=== PATIENT | male | born 1965 | race Caucasian/White ===

== ENCOUNTER → 2018-07-10 | Outpatient (CLI) | payer BC ==
[~2018-07-10] MED LIST: Augmentin 875-1 EACH PO; Bisac-Evac10 MG PR; Colace100 MG PO; GABA300 PO; HYDACE5 PO; HYDR1TAB94 PO; IBUP800 PO; INSULANPEN SC; LISI5 PO; METF500 PO; METF500C PO; PRAV20 PO; SACC250C PO; TRAM50 PO; TYLENOL325 MG PO; Zofran Odt4 MG PO
[2018-07-10 17:50] LABS: BASOPHILS ABSOLUTE AUTO 0.04 K/mm3 (0.00-0.23); BASOPHILS PERCENT AUTO 0 % (0-2); EOSINOPHILS ABSOLUTE AUTO 0.05 K/mm3 (0.00-0.68); EOSINOPHILS PERCENT AUTO 1 % (0-6); Hematocrit 44.2 % (37.0-53.0); Hemoglobin 15.3 g/dL (13.5-17.5); IMMATURE GRAN ABSOLUTE AUTO 0.03 K/mm3 (0.00-0.10); IMMATURE GRAN PERCENT AUTO 0 % (0-1); LYMPHOCYTES ABSOLUTE AUTO 1.08 K/mm3 (0.84-5.20); LYMPHOCYTES PERCENT AUTO 12 % (21-46); MONOCYTES ABSOLUTE AUTO 0.83 K/mm3 (0.16-1.47); MONOCYTES PERCENT AUTO 9 % (4-13); Mean Corpuscular HGB 29.1 pg (26.0-34.0); Mean Corpuscular HGB Conc 34.6 g/dL (31.5-36.5); Mean Corpuscular Volume 84 fL (80-100); Mean Platelet Volume 10.5 fL (9.1-12.4); NEUTROPHILS ABSOLUTE AUTO 7.31 K/mm3 (1.96-9.15); NEUTROPHILS PERCENT AUTO 78 % (41-73); Platelet Count 197 K/mm3 (150-400); RDW Coefficient Variation 11.7 % (11.7-14.2); RDW Standard Deviation 35.3 fL (35.1-46.3); Red Blood Cell Count 5.25 M/mm3 (4.30-5.90); White Blood Cell Count 9.34 K/mm3 (4.00-11.30)
[2018-07-10 17:57] LABS: Bun/Creatinine Ratio 14.4 (12.0-20.0); Calcium, Blood 9.7 mg/dL (8.5-10.1); Creatinine, Blood 1.39 mg/dL (0.60-1.20); Potassium, Blood 4.4 mmol/L (3.5-5.5)
== END ==
LOC: LAB SHORT 17:47 → LAB EV 17:47
PROVIDERS: Emergency Medicine
DX: L05.01 Pilonidal cyst with abscess (principal)
CPT/HCPCS: 80048; 85025

== ENCOUNTER 2018-11-12 10:46 | Day surgery (SDC) | payer BC ==
[~2018-11-12] VITALS: Ht 185.4 cm; Wt 100.2 kg
[~2018-11-12 10:46] MED LIST changes: +Prinivil10 MG PO; +SILD50TA PO
== END 2018-11-12 14:15 | disposition home or self-care (01) ==
LOC: ORSCSDS 10:46
PROVIDERS: Internal Medicine Gastroenterology
PROC: 0DBL8ZX Excision of Transverse Colon, Via Natural or Artificial Opening Endoscopic, Diagnostic (ICD-10-PCS; principal; 2018-11-12 12:15)
DX: Z12.11 Encounter for screening for malignant neoplasm of colon (principal); D12.3 Benign neoplasm of transverse colon; K57.30 Diverticulosis of large intestine without perforation or abscess without bleeding; K64.8 Other hemorrhoids; I10 Essential (primary) hypertension; E11.9 Type 2 diabetes mellitus without complications; E78.5 Hyperlipidemia, unspecified; Z79.4 Long term (current) use of insulin; Z79.899 Other long term (current) drug therapy
CPT/HCPCS: 82947; 88305; J2704; J7120

== ENCOUNTER → 2018-12-29 | Outpatient (CLI) | payer BC ==
[2018-12-29 17:00] LABS: BASOPHILS ABSOLUTE AUTO 0.04 K/mm3 (0.00-0.23); BASOPHILS PERCENT AUTO 0 % (0-2); EOSINOPHILS PERCENT AUTO 1 % (0-6); Hematocrit 38.9 % (37.0-53.0); Hemoglobin 13.8 g/dL (13.5-17.5); IMMATURE GRAN ABSOLUTE AUTO 0.03 K/mm3 (0.00-0.10); IMMATURE GRAN PERCENT AUTO 0 % (0-1); LYMPHOCYTES ABSOLUTE AUTO 1.65 K/mm3 (0.84-5.20); LYMPHOCYTES PERCENT AUTO 16 % (21-46); MONOCYTES ABSOLUTE AUTO 0.94 K/mm3 (0.16-1.47); MONOCYTES PERCENT AUTO 9 % (4-13); Mean Corpuscular HGB 29.6 pg (26.0-34.0); Mean Corpuscular HGB Conc 35.5 g/dL (31.5-36.5); Mean Corpuscular Volume 83 fL (80-100); Mean Platelet Volume 10.1 fL (9.1-12.4); NEUTROPHILS ABSOLUTE AUTO 7.35 K/mm3 (1.96-9.15); NEUTROPHILS PERCENT AUTO 73 % (41-73); Platelet Count 239 K/mm3 (150-400); RDW Coefficient Variation 12.3 % (11.7-14.2); RDW Standard Deviation 37.2 fL (35.1-46.3); Red Blood Cell Count 4.67 M/mm3 (4.30-5.90); White Blood Cell Count 10.11 K/mm3 (4.00-11.30)
[2018-12-29 17:12] LABS: Bilirubin, Total 0.7 mg/dL (0.1-1.0); Bun/Creatinine Ratio 19.3 (12.0-20.0); Calcium, Blood 9.8 mg/dL (8.5-10.1); Creatinine, Blood 1.5 mg/dL (0.60-1.20); Globulin, Blood 3.9 g/dL (2.2-4.0); Potassium, Blood 4.1 mmol/L (3.5-5.5); Total Protein, Blood 7.9 g/dL (6.4-8.2)
== END | disposition home or self-care (01) ==
LOC: LAB SHORT 16:45 → LAB EV 16:45
PROVIDERS: General Practice
DX: E13.621 Other specified diabetes mellitus with foot ulcer (principal)
CPT/HCPCS: 80053; 85025; 87070; 87075; 87077; 87147; 87186; 87205

== ENCOUNTER → 2020-08-29 | Outpatient (CLI) | payer BC ==
[~2020-08-29] MED LIST changes: +AMOCLA875 PO; +DOXY100 PO; +OXYC5 PO; +VISBIOME 112.51 EACH PO
== END ==
LOC: LAB 15:23 → LAB SHORT 15:23
DX: E13.621 Other specified diabetes mellitus with foot ulcer (principal); L97.509 Non-pressure chronic ulcer of other part of unspecified foot with unspecified severity
CPT/HCPCS: 87070; 87075; 87147; 87205

== ENCOUNTER → 2020-08-30 | Outpatient (CLI) | payer BC ==
[2020-08-30 09:56] LABS: BASOPHILS ABSOLUTE AUTO 0.04 K/mm3 (0.00-0.23); BASOPHILS PERCENT AUTO 0 % (0-2); EOSINOPHILS ABSOLUTE AUTO 0.01 K/mm3 (0.00-0.68); EOSINOPHILS PERCENT AUTO 0 % (0-6); Hematocrit 36.7 % (37.0-53.0); Hemoglobin 12.3 g/dL (13.5-17.5); IMMATURE GRAN ABSOLUTE AUTO 0.09 K/mm3 (0.00-0.10); IMMATURE GRAN PERCENT AUTO 1 % (0-1); LYMPHOCYTES ABSOLUTE AUTO 0.86 K/mm3 (0.84-5.20); LYMPHOCYTES PERCENT AUTO 7 % (21-46); MONOCYTES ABSOLUTE AUTO 1.13 K/mm3 (0.16-1.47); MONOCYTES PERCENT AUTO 9 % (4-13); Mean Corpuscular HGB 28.1 pg (26.0-34.0); Mean Corpuscular HGB Conc 33.5 g/dL (31.5-36.5); Mean Corpuscular Volume 84 fL (80-100); Mean Platelet Volume 10.5 fL (9.1-12.4); NEUTROPHILS ABSOLUTE AUTO 10.76 K/mm3 (1.96-9.15); NEUTROPHILS PERCENT AUTO 83 % (41-73); Platelet Count 194 K/mm3 (150-400); RDW Coefficient Variation 12.3 % (11.7-14.2); RDW Standard Deviation 37.4 fL (35.1-46.3); Red Blood Cell Count 4.38 M/mm3 (4.30-5.90); White Blood Cell Count 12.89 K/mm3 (4.00-11.30)
== END | disposition home or self-care (01) ==
LOC: LAB SHORT 08:45 → LAB 08:45
PROVIDERS: Physician Assistant Medical
DX: E13.621 Other specified diabetes mellitus with foot ulcer (principal); L97.509 Non-pressure chronic ulcer of other part of unspecified foot with unspecified severity
CPT/HCPCS: 85025; 85651; 86140

== ENCOUNTER 2020-08-31 16:26 | Inpatient (IN) | payer BC ==
[~2020-08-31] VITALS: Ht 185.4 cm; Wt 115.0 kg
[~2020-08-31 16:26] MED LIST changes: -AMOCLA875 PO; -DOXY100 PO; -OXYC5 PO; -VISBIOME 112.51 EACH PO
[2020-08-31] MEDS ORDERED: DOXY100 PO (17:03)
--- NOTE | 2020-08-31 17:27 | NUR ---
CALLED [facility] FOR NEW ADMIT ORDERS, STATES KARINA IS GOING TO PLACE ORDERS.
--- NOTE | 2020-09-01 04:47 | NUR ---
CYTOGENETICS LABORATORY MANAGER SUMMARY PT A&OX4, ABLE TO MAKE NEEDS KNOWN. PLEASANT AND COOPERATIVE TO CARE. PT MEDICATED FOR R FOOT PAIN X1 PER EMAR. NO C/O CP, SOB OR N&V. PT CONT ON IV ABX, NO ASE NOTED. PT SBA TO BATHROOM. DENIES DYSURIA OR GI ISSUES THIS SHIFT. WOUND DRESSING TO R FOOT C/D/I. PT CALM AND RESTED IN BED T/O SHIFT. BED AT LOWEST POSITION. CALL LIGHT WITHIN REACH.
[2020-09-01 05:08] LABS: BASOPHILS ABSOLUTE AUTO 0.05 K/mm3 (0.00-0.23); BASOPHILS PERCENT AUTO 0 % (0-2); EOSINOPHILS ABSOLUTE AUTO 0.02 K/mm3 (0.00-0.68); EOSINOPHILS PERCENT AUTO 0 % (0-6); Hematocrit 33.4 % (37.0-53.0); Hemoglobin 10.6 g/dL (13.5-17.5); IMMATURE GRAN ABSOLUTE AUTO 0.05 K/mm3 (0.00-0.10); IMMATURE GRAN PERCENT AUTO 0 % (0-1); LYMPHOCYTES ABSOLUTE AUTO 0.99 K/mm3 (0.84-5.20); LYMPHOCYTES PERCENT AUTO 8 % (21-46); MONOCYTES ABSOLUTE AUTO 1.18 K/mm3 (0.16-1.47); MONOCYTES PERCENT AUTO 9 % (4-13); Mean Corpuscular HGB 26.9 pg (26.0-34.0); Mean Corpuscular HGB Conc 31.7 g/dL (31.5-36.5); Mean Corpuscular Volume 85 fL (80-100); Mean Platelet Volume 11.2 fL (9.1-12.4); NEUTROPHILS ABSOLUTE AUTO 10.34 K/mm3 (1.96-9.15); NEUTROPHILS PERCENT AUTO 82 % (41-73); Platelet Count 231 K/mm3 (150-400); RDW Coefficient Variation 12.4 % (11.7-14.2); RDW Standard Deviation 38.5 fL (35.1-46.3); Red Blood Cell Count 3.94 M/mm3 (4.30-5.90); White Blood Cell Count 12.63 K/mm3 (4.00-11.30)
[2020-09-01 05:44] LABS: Alanine Aminotransfer (ALT/SGP 79 U/L (12-78); Albumin, Blood 2.7 g/dL (3.4-5.0); Albumin/Globulin Ratio 0.6 (0.8-1.8); Alk Phos 121 U/L (50-136); Anion Gap 9 mmol/L (6-16); Aspartate Aminotrans (AST/SGOT 75 U/L (12-37); Blood Urea Nitrogen 25 mg/dL (8-24); Bun/Creatinine Ratio 21.6 (12.0-20.0); CO2, Blood 24 mmol/L (21-32); Calcium, Blood 8.4 mg/dL (8.5-10.1); Chloride, Blood 97 mmol/L (98-108); Creatinine, Blood 1.16 mg/dL (0.60-1.20); Globulin, Blood 4.6 g/dL (2.2-4.0); Glomerular Filtration Rate >60 (60-); Glucose, Blood 238 mg/dL (70-99); Potassium, Blood 4.1 mmol/L (3.5-5.5); Sodium, Blood 130 mmol/L (136-145); Total Protein, Blood 7.3 g/dL (6.4-8.2)
--- NOTE | 2020-09-01 10:12 | NUR ---
Echocardiogram performed by Hamida Saez under my supervision.
[2020-09-01 15:23] LABS: Influenza A, PCR Negative (NEGATIVE); Influenza B, PCR Negative (NEGATIVE); Resp Syncytial Virus, PCR Negative (NEGATIVE); SARS-Cov-2 (COVID-19) PCR, MMC Negative (NEGATIVE)
--- NOTE | 2020-09-01 16:33 | NUR ---
PT TRANSFERED TO [facility] FROM FLOOR VIA GURNY. History, Chart, Medications and Allergies reviewed before start of procedure. Lungs clear T/O to Auscultation. Patient confirms NPO status and agrees with scheduled surgery.
--- NOTE | 2020-09-01 16:52 | NUR ---
ADMIT: 08/31/20 DISCHARGE: DX: foot abcess, dm CC: cpeabody [place] CALL: RESIDENCE: home with Kimberley CAREGIVER: self Kelly- Kimberley [phone] DX: dm 2, foot ulcers, htn, see list DME: no record CCM: no record HOME HEALTH: no record SUMMARY: Admit 08/31/20 09/01/20 Toe amputation scheduled for today. cp PROBLEMS: 1: Diabetic foot ulcer associated with type 2 diabetes mellitus, with fat layer exposed
--- NOTE | 2020-09-01 18:48 | NUR ---
SHIFT SUMMARY PT BACK FROM SURGERY WITH WOUND VAC IN PLACE. PT AWAKE, AND TALKING AND STARTING TO EAT DINNER. VITALS WNL. NO ACUTE DISTRESS AT THIS TIME. CALL LIGHT IN REACH. WILL CONTINUE TO MONITOR AND REPORT TO ONCOMING RN.
--- NOTE | 2020-09-02 04:21 | NUR ---
SHIFT SUMMARY ASSUMED CARE OF PT AT 1900. PT IS A/OX4. HEART SOUNDS REGULAR, LUNG SOUNDS CLEAR. PT USED URINAL T/O THE NIGHT. PT VITALS STABLE. WOUND WAC DRAINING SCANT RED FLUID. PT EDUCATED ABOUT WOUND VAC. PT CONCERNED ABOUT LEARNING TO WALK AGAIN. NO ACUTE EVENTS DURING THE NIGHT. PT SLEPT T/O THE NIGHT. CALL LIGHT IN REACH, BED IN LOWEST POSITION.
--- NOTE | 2020-09-02 09:09 | NUR ---
09/02/20 0909 Josette Toro VERIFICATIONS: EDIT CHART.
--- NOTE | 2020-09-02 19:00 | NUR ---
09/02/20 NO ETA for discharge at this time, additional surgery planned for Sunday. Will follow patient for discharge needs. cp
--- NOTE | 2020-09-02 19:26 | NUR ---
SHIFT SUMMARY MEDICATED FOR PAIN X1 THIS SHIFT. WOUND VAC IN PLACE WORKING W/O DIFFICULTY. PT HAS HAD NO FURTHER COMPLAINTS THIS SHIFT. PLANS FOR SURGERY TOMORROW WITH DR. SALGADO. REPORT GIVEN TO LIZBETH RN. CALL LIGHT IN REACH.
--- NOTE | 2020-09-03 04:25 | NUR ---
SHIFT SUMMARY ASSUMED CARE OF PT AT 1900. PT IS A/OX4. PT IS VERY ANXIOUS, PT STATES THAT HE CANNOT DESCRIBED THE FEELINGS THAT HE IS HAVING. PT WAS UNABLE TO SLEEP UNTIL AFTER MIDNIGHT, MEDICATED FOR ANXIETY PER EMAR. HEART SOUNDS REGULAR, LUNG SOUNDS CLEAR. PT USED URINAL AT BEDSIDE. WOUNDS VAC DRAINING SCANT RED FLUID. PT HAS BEEN NPO SINCE MIDNIGHT. CALL LIGHT IN REACH, BED IN LOWEST POSTION.
[2020-09-03 04:57] LABS: BASOPHILS ABSOLUTE AUTO 0.04 K/mm3 (0.00-0.23); BASOPHILS PERCENT AUTO 1 % (0-2); EOSINOPHILS ABSOLUTE AUTO 0.12 K/mm3 (0.00-0.68); EOSINOPHILS PERCENT AUTO 2 % (0-6); IMMATURE GRAN ABSOLUTE AUTO 0.14 K/mm3 (0.00-0.10); IMMATURE GRAN PERCENT AUTO 2 % (0-1); LYMPHOCYTES ABSOLUTE AUTO 1.28 K/mm3 (0.84-5.20); LYMPHOCYTES PERCENT AUTO 18 % (21-46); MONOCYTES PERCENT AUTO 10 % (4-13); Mean Corpuscular HGB 27.5 pg (26.0-34.0); Mean Corpuscular HGB Conc 32.3 g/dL (31.5-36.5); Mean Corpuscular Volume 85 fL (80-100); Mean Platelet Volume 10.6 fL (9.1-12.4); NEUTROPHILS ABSOLUTE AUTO 5.02 K/mm3 (1.96-9.15); NEUTROPHILS PERCENT AUTO 69 % (41-73); Platelet Count 264 K/mm3 (150-400); RDW Coefficient Variation 12.8 % (11.7-14.2); RDW Standard Deviation 39.8 fL (35.1-46.3); Red Blood Cell Count 3.63 M/mm3 (4.30-5.90)
[2020-09-03 05:20] LABS: Albumin, Blood 2.1 g/dL (3.4-5.0); Albumin/Globulin Ratio 0.5 (0.8-1.8); Bilirubin, Total 0.6 mg/dL (0.1-1.0); Bun/Creatinine Ratio 32.4 (12.0-20.0); Calcium, Blood 8.2 mg/dL (8.5-10.1); Creatinine, Blood 1.36 mg/dL (0.60-1.20); Globulin, Blood 4.4 g/dL (2.2-4.0); Potassium, Blood 4.6 mmol/L (3.5-5.5); Total Protein, Blood 6.5 g/dL (6.4-8.2)
--- NOTE | 2020-09-03 13:02 | NUR ---
PATIENT WAS BROUGHT TO D/S FOR HIS PROCEDURE. THE PATIENT'S B/G WAS 275 AND HE RECIEVED 4 UNITS OF INSULIN, PER DR. BAKER.Noelle Paws warming gown applied. History, Chart, Medications and Allergies reviewed before start of procedure.Lungs clear T/O to Auscultation. Patient confirms NPO status and agrees with scheduled surgery. Pre-Op teaching done. Pt verbalizes understanding.
--- NOTE | 2020-09-03 15:37 | NUR ---
TRANSFER TO 216. PT STILL IN DAY SURGERY BUT TO BE TRANSFERED TO ROOM 216. REPORT GIVEN TO LETI DUNCAN RN. PT , FRANCISCA CALLED & NOTIFIED.
--- NOTE | 2020-09-03 17:04 | NUR ---
1545 TO ROOM 216 FROM PACU ACCOMPANIED BY . PT ALERT AND ORIENTED, DENIES ANY PAIN OR NAUSEA. RIGHT LOWER EXTREMITY ELEVATED ON 2 PILLOWS. DRESSING TO RIGHT FOOT CLEAN DRY AND INTACT,
--- NOTE | 2020-09-03 18:25 | NUR ---
SUMMARY PT DENIES ANY PAIN TO RIGHT FOOT. R FOOT ELEVATED ON PILLOWS, DRESSING DRY AND INTACT. BRUCE PO DIET WITHOUT NAUSEA
[2020-09-04 04:26] LABS: BASOPHILS ABSOLUTE AUTO 0.04 K/mm3 (0.00-0.23); BASOPHILS PERCENT AUTO 0 % (0-2); EOSINOPHILS ABSOLUTE AUTO 0.18 K/mm3 (0.00-0.68); EOSINOPHILS PERCENT AUTO 2 % (0-6); Hematocrit 30.2 % (37.0-53.0); Hemoglobin 9.7 g/dL (13.5-17.5); IMMATURE GRAN ABSOLUTE AUTO 0.17 K/mm3 (0.00-0.10); IMMATURE GRAN PERCENT AUTO 2 % (0-1); LYMPHOCYTES ABSOLUTE AUTO 1.69 K/mm3 (0.84-5.20); LYMPHOCYTES PERCENT AUTO 16 % (21-46); MONOCYTES ABSOLUTE AUTO 0.88 K/mm3 (0.16-1.47); MONOCYTES PERCENT AUTO 8 % (4-13); Mean Corpuscular HGB 27.8 pg (26.0-34.0); Mean Corpuscular HGB Conc 32.1 g/dL (31.5-36.5); Mean Corpuscular Volume 87 fL (80-100); Mean Platelet Volume 10.6 fL (9.1-12.4); NEUTROPHILS ABSOLUTE AUTO 7.81 K/mm3 (1.96-9.15); NEUTROPHILS PERCENT AUTO 72 % (41-73); Platelet Count 331 K/mm3 (150-400); RDW Standard Deviation 40.9 fL (35.1-46.3); Red Blood Cell Count 3.49 M/mm3 (4.30-5.90); White Blood Cell Count 10.77 K/mm3 (4.00-11.30)
[2020-09-04 04:47] LABS: Alanine Aminotransfer (ALT/SGP 513 U/L (12-78); Albumin, Blood 2.1 g/dL (3.4-5.0); Albumin/Globulin Ratio 0.5 (0.8-1.8); Alk Phos 242 U/L (50-136); Anion Gap 9 mmol/L (6-16); Aspartate Aminotrans (AST/SGOT 316 U/L (12-37); Bilirubin, Total 0.5 mg/dL (0.1-1.0); Blood Urea Nitrogen 32 mg/dL (8-24); Bun/Creatinine Ratio 28.3 (12.0-20.0); CO2, Blood 24 mmol/L (21-32); Calcium, Blood 8.2 mg/dL (8.5-10.1); Chloride, Blood 100 mmol/L (98-108); Cholesterol 109 mg/dL (50-200); Creatinine, Blood 1.13 mg/dL (0.60-1.20); Globulin, Blood 4.5 g/dL (2.2-4.0); Glomerular Filtration Rate >60 (60-); Glucose, Blood 200 mg/dL (70-99); HDL Cholesterol 22 mg/dL (>39); LDL/HDL RATIO 2.7; Low Density Lipoprotein Chol 60 mg/dL (0-110); Potassium, Blood 4.8 mmol/L (3.5-5.5); Sodium, Blood 133 mmol/L (136-145); Total Protein, Blood 6.6 g/dL (6.4-8.2); Triglycerides 133 mg/dL (30-160); Very Low Density Lipoprot Chol 26 mg/dL (6-32)
--- NOTE | 2020-09-04 06:07 | NUR ---
SHIFT SUMMARY POD1 TOE AMPUTATION R FOOT, A/O X4, VSS, TOLERATING PO, VOIDING WELL, PASSING FLATUS, PAIN WELL CONTROLLED PER EMAR. CALL LIGHT IN REACH, WILL CONTINUE TO MONITOR AND REPORT TO ONCOMING DAY RN.
[2020-09-04] MEDS ORDERED: AMOCLA875 PO (14:18)
[2020-09-04] MEDS ORDERED: VISBIOME 112.51 EACH PO (14:19)
[2020-09-04] MEDS ORDERED: OXYC5 PO (14:19)
--- NOTE | 2020-09-04 15:41 | NUR ---
DISCHARGE PT PROVIDED WITH WRITTEN AND VERBAL DISCHARGE INSTRUCTIONS, AND HE REPORTED UNDERSTANDING. SCRIPTS PROVIDED. PT HAD WALKER DELIVERED FROM [facility]. PT EDUCATED TO FOLLOW UP WITH DR. SALGADO AND PCP. PAIN MANAGED AT TIME OF DISCHARGE. PT ESCORTED OUT IN W/C BY KONG MARINA.
== END 2020-09-04 15:10 | disposition home or self-care (01) | DRG 239 ==
LOC: SURS 16:26 → MEDS 16:26 → SURS 09-03 15:38
PROVIDERS: Family Medicine; Podiatrist Foot & Ankle Surgery; ADMIT Hospitalist
PROC: 0Y6M0ZD Detachment at Right Foot, Partial 4th Ray, Open Approach (ICD-10-PCS; principal; 2020-09-01 15:50)
PROC: 0Y6M0ZF Detachment at Right Foot, Partial 5th Ray, Open Approach (ICD-10-PCS; 2020-09-01 15:50)
PROC: 0Y6M0Z9 Detachment at Right Foot, Partial 1st Ray, Open Approach (ICD-10-PCS; 2020-09-03)
PROC: 0Y6M0ZB Detachment at Right Foot, Partial 2nd Ray, Open Approach (ICD-10-PCS; 2020-09-03)
PROC: 0Y6M0ZC Detachment at Right Foot, Partial 3rd Ray, Open Approach (ICD-10-PCS; 2020-09-03)
PROC: 0Y6M0ZD Detachment at Right Foot, Partial 4th Ray, Open Approach (ICD-10-PCS; 2020-09-03)
PROC: 0Y6M0ZF Detachment at Right Foot, Partial 5th Ray, Open Approach (ICD-10-PCS; 2020-09-03)
DX: E11.52 Type 2 diabetes mellitus with diabetic peripheral angiopathy with gangrene (principal); A48.0 Gas gangrene; L02.611 Cutaneous abscess of right foot; L03.115 Cellulitis of right lower limb; E11.621 Type 2 diabetes mellitus with foot ulcer; E86.0 Dehydration; I10 Essential (primary) hypertension; E11.628 Type 2 diabetes mellitus with other skin complications; R01.1 Cardiac murmur, unspecified; E11.65 Type 2 diabetes mellitus with hyperglycemia; Z79.4 Long term (current) use of insulin; E88.09 Other disorders of plasma-protein metabolism, not elsewhere classified; D63.8 Anemia in other chronic diseases classified elsewhere; Z20.822 Contact with and (suspected) exposure to COVID-19; F41.9 Anxiety disorder, unspecified; M79.2 Neuralgia and neuritis, unspecified
CPT/HCPCS: 0241U; 36415; 73630; 73718; 80053; 80061; 82947; 83036; 85025; 85651; 86140; 87040; 87070; 87071; 87075; 87076; 87147; 87185; 87205; 88305; 88311; 93306; 93971; 97110; 97162; 97530; A9270; J0295; J1650; J1815; J2250; J2370; J2405; J2704; J2765; J3010; J7030; J7050; J7120

== ENCOUNTER 2020-09-10 19:18 | Emergency (ER) | payer BC ==
[~2020-09-10] VITALS: Ht 185.4 cm; Wt 111.1 kg
[~2020-09-10 19:18] MED LIST changes: +AMOCLA875 PO; +DOXY100 PO; +OXYC5 PO; +VISBIOME 112.51 EACH PO
== END 2020-09-10 22:21 | disposition home or self-care (01) ==
LOC: ER 19:18
DX: S98.311 Complete traumatic amputation of right midfoot (principal); I10 Essential (primary) hypertension; E11.9 Type 2 diabetes mellitus without complications; Z79.4 Long term (current) use of insulin; X58.XXXD Exposure to other specified factors, subsequent encounter
CPT/HCPCS: 99282-25

== ENCOUNTER 2022-12-09 12:59 | Inpatient (IN) | payer BC ==
[~2022-12-09] VITALS: Ht 185.4 cm; Wt 116.3 kg
[2022-12-09] VITALS (12 sets, daily range): BP systolic 100–138; BP diastolic 65–98
[~2022-12-09 12:59] MED LIST changes: -ARTHRICREAM RUB85 GM TP; -CEPH500 PO; -ELIQUIS5 M2 PO; -FURO40 PO; -METO25ER PO; -ROSUVASTATIN CA20 MG PO
[2022-12-09] MEDS ORDERED: ROSUVASTATIN CA20 MG PO (14:30)
[2022-12-10] VITALS (33 sets, daily range): BP systolic 70–144; BP diastolic 37–110
--- NOTE | 2022-12-10 05:57 | NUR ---
END OF SHIFT PT HR 140'S TO 150'S WAS TREATED WITH CARDIZEM GTT AT 20MG/HR AND LOPRESSOR 25 MG PO WAS ADDED WELL, B/P DROPPED OVERNIGHT AND NS BOLUS 500ML X'S 2 GIVEN, HR AFLUTTER IN 70'S-80'S, BP STILL SOFT BUT MAP 70-80, NAUSEA TREATED WITH ZOFRAN, SMALL AMOUNT OF EMESIS WITH DRY HEAVES X'S 1, PT AWAKE ALL NIGHT, A BIT ANXIOUS ABOUT CONDITION, VSS AT PRESENT, PT RESTING IN BED WITH CALL LIGHT IN REACH
--- NOTE | 2022-12-10 08:30 | NUR ---
METOPROLOL ADMINISTERED PT BP STABLE AND HR CONTINUES IN THE 130'S. DISCUSSED WITH CHEMICAL RECOVERY OPERATOR NICOLE AND DECISION MADE TO ADMINISTER 0600 DOSE OF METOPROLOL. APPEARS THAT HYPOTENSION OVERNIGHT WAS LIKELY RELATED TO COMBINATION OF DILTIZEM GTT OVERLAPPING WITH METOPROLOL DOSES AND THE CLOSE ADMINISTRAION OF METOPROLOL DOSES. WILL CONTINUE TO MONITOR PTS HR AND BP CLOSELY.
--- NOTE | 2022-12-10 10:30 | NUR ---
ASSESSMENT/PROVIDER VISIT FULL ASSESSMENT CHARTED. PT ALERT AND ORIENTED X 4. PT IRRITABLE DUE TO LACK OF SLEEP LAST NIGHT. THIS RN REASSURES PT AND PROVIDES INSTRUCTION ON PLAN AND GOALS OF TREATMENT. DR. ROMERO TO BEDSIDE, DISCUSSED HR, POSSIBLE R FOOT INFECTION, AND NPO STATUS. PLAN TO CONSULT WITH CARDIOLOGY FOR HR/RHYTHM. WILL GIVE 1200 DOSE OF METOPROLOL. PT TO CONTINUE WITH NPO STATUS UNTIL EVALUATED BY CARDIOLOGY. PROVIDER TO CONTINUE TO EVALUATE R FOOT.
[2022-12-10 11:59] LABS: BASOPHILS ABSOLUTE AUTO 0.02 K/mm3 (0.00-0.23); BASOPHILS PERCENT AUTO 0 % (0-2); EOSINOPHILS ABSOLUTE AUTO 0.02 K/mm3 (0.00-0.68); EOSINOPHILS PERCENT AUTO 0 % (0-6); Hematocrit 35.7 % (37.0-53.0); Hemoglobin 11.5 g/dL (13.5-17.5); IMMATURE GRAN ABSOLUTE AUTO 0.06 K/mm3 (0.00-0.10); IMMATURE GRAN PERCENT AUTO 1 % (0-1); LYMPHOCYTES ABSOLUTE AUTO 1.75 K/mm3 (0.84-5.20); LYMPHOCYTES PERCENT AUTO 24 % (21-46); MONOCYTES ABSOLUTE AUTO 0.54 K/mm3 (0.16-1.47); MONOCYTES PERCENT AUTO 7 % (4-13); Mean Corpuscular HGB 27.4 pg (26.0-34.0); Mean Corpuscular HGB Conc 32.2 g/dL (31.5-36.5); Mean Corpuscular Volume 85 fL (80-100); Mean Platelet Volume 10.3 fL (9.1-12.4); NEUTROPHILS ABSOLUTE AUTO 5.04 K/mm3 (1.96-9.15); NEUTROPHILS PERCENT AUTO 68 % (41-73); Platelet Count 181 K/mm3 (150-400); RDW Coefficient Variation 13.3 % (11.7-14.2); RDW Standard Deviation 41.3 fL (35.1-46.3); Red Blood Cell Count 4.19 M/mm3 (4.30-5.90); White Blood Cell Count 7.43 K/mm3 (4.00-11.30)
--- NOTE | 2022-12-10 12:08 | NUR ---
METOPROLOL PER DISCUSSION WITH DR. CORDON, WANTED 1200 METOPROLOL DOSE GIVEN. WHEN ATTEMPTING TO ADMINISTER, FOUND THAT DOSE GIVEN AROUND 0800 HAD BEEN ATTRIBUTED TO THE 1200 TIME SLOT WHEN IT WAS JUST A DELAYED ADMINISTRATION FOR THE 0600 DOSE. ONE TIME DOSE ADDED SO THAT THIS RN IS ABLE TO CHART 1200 DOSE. MRI SCREEN FORM COMPLETED WITH PT AND . ADDITIONAL QUESTIONS ADDRESSED ABLE.
--- NOTE | 2022-12-10 12:52 | NUR ---
CARDIO CONSULT CARDIO CONSULT CALLED TO DR. CHRISTIE. SPOKE WITH DR. CHRISTIE DIRECTLY. UPDATED ON PT CONDITION AND REASON FOR CONSULT. PROVIDER STATES HE WILL BE OVER TO SEE THE PT WHEN AVAILABLE.
[2022-12-10 12:58] LABS: Albumin, Blood 2.9 g/dL (3.4-5.0); Albumin/Globulin Ratio 0.8 (0.8-1.8); Bilirubin, Total 0.5 mg/dL (0.1-1.0); Creatinine, Blood 2.41 mg/dL (0.60-1.20); Globulin, Blood 3.8 g/dL (2.2-4.0); Potassium, Blood 5.5 mmol/L (3.5-5.5); Total Protein, Blood 6.7 g/dL (6.4-8.2)
[2022-12-10 12:59] LABS: C-REACTIVE PROTEIN, EXT RANGE 6.53 mg/dL (0.000-0.300)
--- NOTE | 2022-12-10 16:27 | NUR ---
PROVIDER CONTACTED REGARDING LAB RESULTS FROM [facility]. DR. CORDON PROVIDED UPDATE AND TO REVIEW LABS. RN RELAYS WORSENING KIDNEY FUNCTION FROM YESTERDAY AND WORSENING LIVER FUNCTION FROM PRIOR LAB DRAW AT THE BEGINNING OF NOVEMBER.
--- NOTE | 2022-12-10 17:19 | NUR ---
SHIFT SUMMARY CARDIO CONSULT REMAINS PENDING AT THIS TIME. PT REMAINS IN AFLUTTER WITH RATE IN THE 130'S DESPITE MEDICATION. LABS OBTAINED THIS AFTERNOON AND SHOW DECREASED KIDNEY AND LIVER FUNCTION. DR. ROMERO UPDATED AND ADDITIONAL ORDERS RECEIEVED. PLAN FOR NEPHROLOGY AND GI CONSULT. DR. ROMERO STATES THAT SHE WILL CONTACT PROVIDERS FOR CONSULT. FAMILY REMAINS AT BEDSIDE. WILL PROVIDE REPORT TO ONCOMING RN.
--- NOTE | 2022-12-10 17:29 | NUR ---
UPDATE PT UPDATED ON LABS AND PLANS FOR ADDITIONAL TESTING. DURING DISCUSSION WITH PT AND , NO MAJOR CHANGES NOTED WITH THE EXCEPTION OF DIZZINESS AND ABD PAIN LAST NIGHT WHICH IS WHY PT PRESENTED TO THE THE ER. PT DENIES ANY ABD PAIN AT THIS TIME. DISCUSSED ANY CHANGES THAT MAY HAVE OCCURRED SINCE LAST PCP APPT 2 WEEKS AGO. PT AND STATE THAT AT LAST APPT, PT WAS STARTED ON CRESTOR. HE STOPPED TAKING MEDICATION 2 DAYS AGO BECAUSE IT WAS MAKING HIM DIZZY. NO OTHER LIFESTYLE OR MEDICATION CHANGES NOTED DURING THIS TIME PERIOD. PT DENIES ANY ETOH USE.
--- NOTE | 2022-12-10 19:01 | NUR ---
CARDIO CONSULT DR. CHRISTIE COMPLETES CARDIO CONSULT. PLAN FOR JHONATAN WITH CARDIOVERSION TOMORROW. PT OK TO EAT UNTIL MIDNIGHT AND THEN NPO AFTER MIDNIGHT. PLAN TO CONTINUE METOPROLOL 25MG PO Q6H, GIVE ONE TIME DILTIZEM 10MG IV, THEN IF NEEDED RESTART DILTIZEM GTT AT 5MG/HR AND TITRATE UP IF NEEDED. GOAL FOR SLOW RATE CONTROL CLOSER TO 100 BPM.
[2022-12-11] VITALS (71 sets, daily range): BP systolic 86–147; BP diastolic 62–110
[2022-12-11 04:53] LABS: BASOPHILS ABSOLUTE AUTO 0.06 K/mm3 (0.00-0.23); BASOPHILS PERCENT AUTO 1 % (0-2); EOSINOPHILS ABSOLUTE AUTO 0.19 K/mm3 (0.00-0.68); EOSINOPHILS PERCENT AUTO 3 % (0-6); Hematocrit 35.5 % (37.0-53.0); Hemoglobin 11.5 g/dL (13.5-17.5); IMMATURE GRAN ABSOLUTE AUTO 0.06 K/mm3 (0.00-0.10); IMMATURE GRAN PERCENT AUTO 1 % (0-1); LYMPHOCYTES ABSOLUTE AUTO 2.36 K/mm3 (0.84-5.20); LYMPHOCYTES PERCENT AUTO 31 % (21-46); MONOCYTES ABSOLUTE AUTO 0.55 K/mm3 (0.16-1.47); MONOCYTES PERCENT AUTO 7 % (4-13); Mean Corpuscular HGB 27.5 pg (26.0-34.0); Mean Corpuscular HGB Conc 32.4 g/dL (31.5-36.5); Mean Corpuscular Volume 85 fL (80-100); Mean Platelet Volume 10.3 fL (9.1-12.4); NEUTROPHILS ABSOLUTE AUTO 4.34 K/mm3 (1.96-9.15); NEUTROPHILS PERCENT AUTO 57 % (41-73); NRBC ABSOLUTE 0.02 K/mm3 (0.00-0.02); NRBC Auto 0.3 /100 WBC (0.0-0.2); Platelet Count 212 K/mm3 (150-400); RDW Coefficient Variation 13.2 % (11.7-14.2); RDW Standard Deviation 41.2 fL (35.1-46.3); Red Blood Cell Count 4.18 M/mm3 (4.30-5.90); White Blood Cell Count 7.56 K/mm3 (4.00-11.30)
[2022-12-11 05:07] LABS: International Normalized Ratio 1.32; Prothrombin Time Results 13.6 Sec (9.7-11.5)
--- NOTE | 2022-12-11 05:16 | NUR ---
END OF SHIFT PT ON CARDIZEM CURRENTLY AT 15MG/HR, HAS BEENSLOWLY TITRATED UP AND AT ON POINT AROUND 0100 DRIP WAS TURNED OFF FOR SYS B/P IN THE 'S WHICH WAS SUBSEQUENTLY THE ONLY TIME ALL NIGHT THE HR WAS REMOTELY CONTROLLED, CARDIZEM TURNED BACK ON WHEN B/P WAS WNL AND TITRATED BACK UP SLOWLY, CURRENTLY HR IS 145, PT NPO SINCE MIDNIGHT EXCEPT A FEW ICE CHIPS AND MEDS, OTHERWISE NO CHANGES
[2022-12-11 05:50] LABS: Albumin, Blood 2.8 g/dL (3.4-5.0); Albumin/Globulin Ratio 0.8 (0.8-1.8); Bilirubin, Total 0.4 mg/dL (0.1-1.0); Bun/Creatinine Ratio 22.9 (12.0-20.0); Calcium, Blood 8.2 mg/dL (8.5-10.1); Creatinine, Blood 1.88 mg/dL (0.60-1.20); Globulin, Blood 3.7 g/dL (2.2-4.0); Potassium, Blood 4.6 mmol/L (3.5-5.5); Total Protein, Blood 6.5 g/dL (6.4-8.2)
--- NOTE | 2022-12-11 12:10 | NUR ---
AM NOTE/TRANSFER: PT A&0x4, COOPERATIVE W/CARE, ABLE TO MAKE NEEDS KNOWN. PT DENIES SOB, O2 SATS >93% ON RA. AFLUTTER CONTINUES ON MONITOR, RATE 130s-140s, PT DENIES CP. PLAN FOR JHONATAN AT BEDSIDE REMAINS IN PLACE. AT THIS TIME, PT HAS RECEIVED NEW BED ASSIGNMENT FOR MEDICATION ORDERS. REPORT HAS BEEN GIVEN TO RECEIVING RN.
--- NOTE | 2022-12-11 12:30 | NUR ---
ASSUMED CARE OF PT AT 1230. PT IS ALERT AND ORIENTED X 4, ABLE TO COMMUNICATE NEEDS. PT DENIES ANY SOB, DIZZINESS, CHEST PAIN. PT ON ROOM AIR WITH SPO2 ABOVE 90% NO RESP DISTRESS NOTED. ESMOLOL DRIP STARTED PER OCT, SEE FLOWSHEET. PT ORIENTED TO ROOM, CALL LIGHT WITHIN REACH.
--- NOTE | 2022-12-11 15:20 | NUR ---
CARDIOVERSION: AT BEDSIDE FOR JHONATAN/CARDIOVERSION. 1350: TIMEOUT CALLED, SEDATION MEDICATION GIVEN PER EMAR FOR SEDATION. ESMOLOL ON STAND-BY AT 1359 PER 1410: 200J SHOCK GIVEN, PT CONVERTED TO SR WITH HR IN THE 60'S-70'S. ORDERED ESMOLOL AT 50MCG/KG/MIN EKG OBTAINED.
[2022-12-11 18:08] LABS: Albumin, Blood 2.9 g/dL (3.4-5.0); Albumin/Globulin Ratio 0.7 (0.8-1.8); Bilirubin, Total 0.4 mg/dL (0.1-1.0); Bun/Creatinine Ratio 20.9 (12.0-20.0); Calcium, Blood 8.1 mg/dL (8.5-10.1); Creatinine, Blood 1.96 mg/dL (0.60-1.20); Potassium, Blood 5.7 mmol/L (3.5-5.5); Total Protein, Blood 6.9 g/dL (6.4-8.2)
--- NOTE | 2022-12-11 18:30 | NUR ---
Summary. Assumed care at approximately 1730. Pt resting in bed, on RA, alert and oriented. at bedside. No acute needs, VS stable. Will continue to monitor and report off to zo WILLIAM.
[2022-12-11 20:06] LABS: Percent Saturation 17.9 % (20.0-50.0); Phosphorus, Blood 3.3 mg/dL (2.5-4.9)
--- NOTE | 2022-12-11 21:02 | NUR ---
PATIENT AWAKE VERBALIZED FRUSTRATION REGARDING NEEDING TO STAY. ALSO FRUSTRATED THAT HE CAME IN BECAUSE OF A WOUND TO HIS LEFT FOOT AND FEELS THAT NO ONE HAS ADDRESSED THIS PROBLEM. EXPLAINED HOW WITH INCREASED HEART RATE THAT THERE WAS DECREASED PERFUSION, WHICH MAKES IT HARDER FOR THE WOUND TO HEAL, ALSO THIS COULD BE WHY HIS KIDNEYS ARE NOW HAVING DIFFICULTY. PATIENT APPEARS TO UNDERSTAND. PATIENT ABLE TO STAND AT BEDSIDE TO VOID SMALL AMT OF URINE, MAINTAINING HEART RATE 80'S. EXPLAINED NEED TO MONITOR I&O. AND SAMPLE SENT TO LAB PER ORDER.
[2022-12-12] VITALS (11 sets, daily range): BP systolic 125–143; BP diastolic 86–106
--- NOTE | 2022-12-12 01:19 | NUR ---
PATIENT AWAKE WATCHING TV. NO C/O PAIN. NO URINE AND NO URGE TO VOID AFTER LASIX PO
--- NOTE | 2022-12-12 04:43 | NUR ---
PATIENT APPEARS TO BE SLEEPING AT THIS TIME. LAYING ON HIS RIGHT SIDE RESP EVEN AND UNLABORED.
--- NOTE | 2022-12-12 04:57 | NUR ---
SHORT 6 BEAT RUN OF V-TACH. THEN TO SINUS TACH 116-120. PATIENT APPEARS TO BE SLEEPING LAYING ON HIS RIGHT SIDE. SEE STRIP
[2022-12-12 05:36] LABS: BASOPHILS ABSOLUTE AUTO 0.05 K/mm3 (0.00-0.23); BASOPHILS PERCENT AUTO 1 % (0-2); EOSINOPHILS ABSOLUTE AUTO 0.09 K/mm3 (0.00-0.68); EOSINOPHILS PERCENT AUTO 1 % (0-6); Hematocrit 36.2 % (37.0-53.0); Hemoglobin 11.4 g/dL (13.5-17.5); IMMATURE GRAN ABSOLUTE AUTO 0.08 K/mm3 (0.00-0.10); IMMATURE GRAN PERCENT AUTO 1 % (0-1); LYMPHOCYTES ABSOLUTE AUTO 2.09 K/mm3 (0.84-5.20); LYMPHOCYTES PERCENT AUTO 27 % (21-46); MONOCYTES ABSOLUTE AUTO 0.66 K/mm3 (0.16-1.47); MONOCYTES PERCENT AUTO 9 % (4-13); Mean Corpuscular HGB Conc 31.5 g/dL (31.5-36.5); Mean Corpuscular Volume 86 fL (80-100); NEUTROPHILS ABSOLUTE AUTO 4.82 K/mm3 (1.96-9.15); NEUTROPHILS PERCENT AUTO 62 % (41-73); NRBC ABSOLUTE 0.03 K/mm3 (0.00-0.02); NRBC Auto 0.4 /100 WBC (0.0-0.2); Platelet Count 226 K/mm3 (150-400); RDW Coefficient Variation 13.5 % (11.7-14.2); RDW Standard Deviation 41.8 fL (35.1-46.3); Red Blood Cell Count 4.23 M/mm3 (4.30-5.90); White Blood Cell Count 7.79 K/mm3 (4.00-11.30)
[2022-12-12 06:03] LABS: Albumin, Blood 2.8 g/dL (3.4-5.0); Albumin/Globulin Ratio 0.7 (0.8-1.8); Bilirubin, Total 0.4 mg/dL (0.1-1.0); Bun/Creatinine Ratio 21.9 (12.0-20.0); Calcium, Blood 7.9 mg/dL (8.5-10.1); Creatinine, Blood 1.96 mg/dL (0.60-1.20); Phosphorus, Blood 3.2 mg/dL (2.5-4.9); Potassium, Blood 4.9 mmol/L (3.5-5.5); Total Protein, Blood 6.8 g/dL (6.4-8.2)
--- NOTE | 2022-12-12 06:52 | NUR ---
SUMMARY PATIENT VERBALIZED THAT HE WAS ABLE TO SLEEP OFF AND ON DURING THE NIGHT. WANTING TO GO HOME AND SLEEP IN HIS OWN BED. PATIENT HAD SMALL RUN OF VTACH ONCE DURING THE NIGHT. HEART RATE 70'S THIS MORNING.
--- NOTE | 2022-12-12 08:57 | NUR ---
AM NOTE... ASSUMED CARE OF PT AT 0700. PT IS A&Ox4 AND IND WITH CARE WITH MINIMAL HELP WITH THE CORDS/WIRES. VS STABLE. HE IS IN SR IN THE 70'S-80'S. HE IS ON RA WITH O2 SATS>90%. PT DENIES ANY CHEST PAIN, SOB OR N/V. L/S CLEAR T/O. BT PRESENT AND HYPOACTIVE. PT IS ABLE TO USE THE URINAL AT THE BEDSIDE INDEPENDENTLY. PT IS VERY ANXIOUS TO D/C HOME TODAY. WILL CONTINUE TO MONITOR.
[2022-12-12] MEDS ORDERED: FURO40 PO (11:47)
[2022-12-12] MEDS ORDERED: METO25ER PO (11:48)
[2022-12-12] MEDS ORDERED: CEPH500 PO (11:49)
[2022-12-12] MEDS ORDERED: ELIQUIS5 M2 PO (11:50)
[2022-12-12] MEDS ORDERED: ARTHRICREAM RUB85 GM TP (11:51)
--- NOTE | 2022-12-12 13:27 | NUR ---
PT D/C HOME... PT WAS D/C'd HOME, ALL PT'S BELONGINGS WERE PACKED AND SENT WITH THE PT'S . NEW MEDS WERE CALLED AND FAXED OVER TO PT'S PHARMACY OF CHOICE. DISCHARGE AND NEW MEDICATION EDUCATION PROVIDED TO THE PT IN VERBAL AND WRITTEN FORMAT. PT'S 2 IVs WERE REMOVED WNL.
[2022-12-14 14:10] LABS: A/G RATIO 0.8 (0.7-1.7); ALBUMIN 2.9 g/dL (2.9-4.4); ALPHA-1-GLOBULIN 0.2 g/dL (0.0-0.4); BETA GLOBULIN 0.9 g/dL (0.7-1.3); GAMMA GLOBULIN 1.4 g/dL (0.4-1.8); GLOBULIN, TOTAL 3.6 g/dL (2.2-3.9); M-SPIKE Not Observed g/dL (Not Observed); PROTEIN, TOTAL, SERUM 6.5 g/dL (6.0-8.5)
[2022-12-15 10:10] LABS: HBSAG SCREEN Negative (Negative); HCV AB Non Reactive (Non Reactive); HEP A AB, IGM Negative (Negative); HEP B CORE AB, IGM Negative (Negative)
[2022-12-19 15:12] LABS: M-SPIKE, % Not Observed % (Not Observed); PROTEIN,TOTAL,URINE 150.8 mg/dL (Not Estab.)
== END 2022-12-12 13:34 | disposition home or self-care (01) | DRG 638 ==
LOC: ER 12:59 → PCU 13:00 → ICUW 12-10 14:19 → ICUE 12-10 14:19 → PCU 12-10 14:20 → ICUE 12-11 12:18 → ICUW 12-12 05:43
PROVIDERS: Family Medicine; Internal Medicine; Internal Medicine Cardiovascular Disease; Internal Medicine Nephrology; ADMIT Hospitalist
PROC: B24BZZ4 Ultrasonography of Heart with Aorta, Transesophageal (ICD-10-PCS; principal; 2022-12-11)
PROC: 5A2204Z Restoration of Cardiac Rhythm, Single (ICD-10-PCS; 2022-12-11)
DX: E11.628 Type 2 diabetes mellitus with other skin complications (principal); I42.0 Dilated cardiomyopathy; I48.92 Unspecified atrial flutter; L03.116 Cellulitis of left lower limb; L02.416 Cutaneous abscess of left lower limb; N17.9 Acute kidney failure, unspecified; E78.5 Hyperlipidemia, unspecified; E66.9 Obesity, unspecified; I35.0 Nonrheumatic aortic (valve) stenosis; E11.621 Type 2 diabetes mellitus with foot ulcer; I12.9 Hypertensive chronic kidney disease with stage 1 through stage 4 chronic kidney disease, or unspecified chronic kidney disease; N18.9 Chronic kidney disease, unspecified; E11.22 Type 2 diabetes mellitus with diabetic chronic kidney disease; I48.91 Unspecified atrial fibrillation; L97.529 Non-pressure chronic ulcer of other part of left foot with unspecified severity; E11.40 Type 2 diabetes mellitus with diabetic neuropathy, unspecified; R74.01 Elevation of levels of liver transaminase levels; Z68.33 Body mass index [BMI] 33.0-33.9, adult; Z98.890 Other specified postprocedural states; Z89.431 Acquired absence of right foot; Z79.4 Long term (current) use of insulin; Z79.899 Other long term (current) drug therapy
CPT/HCPCS: 36415; 71045; 73718; 76700; 80053; 80074; 82306; 82570; 82728; 82947; 83540; 83550; 83605; 83970; 84100; 84156; 84165; 84166; 84443; 84484; 85025; 85610; 85651; 86140; 93005; 93010; 93312; 93325; 93922; 96365; 96366; 96372; 96375; 96376; 99285-25; A9270; C8929; G0378; J0153; J0690; J0696; J1650; J1815; J2250; J2310; J2405; J3010; J7030; J7040; Q9957

== ENCOUNTER → 2022-12-09 | Outpatient (CLI) | payer BC ==
[~2022-12-09] MED LIST changes: +ARTHRICREAM RUB85 GM TP; +CEPH500 PO; +ELIQUIS5 M2 PO; +FURO40 PO; +METO25ER PO; +ROSUVASTATIN CA20 MG PO
[2022-12-09 11:27] LABS: BASOPHILS ABSOLUTE AUTO 0.04 K/mm3 (0.00-0.23); BASOPHILS PERCENT AUTO 0 % (0-2); EOSINOPHILS ABSOLUTE AUTO 0.08 K/mm3 (0.00-0.68); EOSINOPHILS PERCENT AUTO 1 % (0-6); Hematocrit 37.9 % (37.0-53.0); Hemoglobin 12.6 g/dL (13.5-17.5); IMMATURE GRAN ABSOLUTE AUTO 0.03 K/mm3 (0.00-0.10); IMMATURE GRAN PERCENT AUTO 0 % (0-1); LYMPHOCYTES ABSOLUTE AUTO 0.97 K/mm3 (0.84-5.20); LYMPHOCYTES PERCENT AUTO 10 % (21-46); MONOCYTES ABSOLUTE AUTO 0.55 K/mm3 (0.16-1.47); MONOCYTES PERCENT AUTO 6 % (4-13); Mean Corpuscular HGB 27.8 pg (26.0-34.0); Mean Corpuscular HGB Conc 33.2 g/dL (31.5-36.5); Mean Corpuscular Volume 84 fL (80-100); Mean Platelet Volume 9.8 fL (9.1-12.4); NEUTROPHILS ABSOLUTE AUTO 7.88 K/mm3 (1.96-9.15); NEUTROPHILS PERCENT AUTO 83 % (41-73); Platelet Count 221 K/mm3 (150-400); RDW Coefficient Variation 13.3 % (11.7-14.2); RDW Standard Deviation 40.7 fL (35.1-46.3); Red Blood Cell Count 4.54 M/mm3 (4.30-5.90); White Blood Cell Count 9.55 K/mm3 (4.00-11.30)
[2022-12-09 11:35] LABS: Bun/Creatinine Ratio 16.9 (12.0-20.0); Calcium, Blood 9.1 mg/dL (8.5-10.1); Creatinine, Blood 1.66 mg/dL (0.60-1.20); Potassium, Blood 4.4 mmol/L (3.5-5.5)
== END ==
LOC: LAB SHORT 11:24 → LAB 11:24
PROVIDERS: Physician Assistant Medical
DX: E11.40 Type 2 diabetes mellitus with diabetic neuropathy, unspecified (principal)
CPT/HCPCS: 80048; 85025; 87070; 87075; 87076; 87077; 87147; 87185; 87186; 87205

== ENCOUNTER 2023-03-09 10:11 | Day surgery (SDC) | payer BC ==
[~2023-03-09] VITALS: Ht 185.4 cm; Wt 115.6 kg
[2023-03-09] VITALS (11 sets, daily range): BP systolic 124–166; BP diastolic 69–109
[~2023-03-09 10:11] MED LIST changes: +ARTHRICREAM RUB85 GM TP; +CEPH500 PO; +ELIQUIS5 M2 PO; +FURO40 PO; +METO25ER PO; +ROSUVASTATIN CA20 MG PO
--- NOTE | 2023-03-09 11:34 | NUR ---
Ambulatory in Day Surgery. History, Chart, Medications and Allergies reviewed before start of procedure. Lungs clear T/O to Auscultation. Patient confirms NPO status and agrees with scheduled surgery. Pre-Op teaching done. Pt verbalizes understanding. Patient States Post-Procedure ride home has been arranged. PT GLASSES TAKEN TO PACU FOR SAFEKEEPING. PT SCOOTER IN BRONCH ROOM FOR SAFEKEEPING.
--- NOTE | 2023-03-09 13:53 | NUR ---
Patient up with standby assist. Discharge instructions reviewed with patient. Patient verbalizes understanding. Copy given to patient to take home. Discharge instructions reviewed with patient. Patient verbalizes understanding. Copy given to patient to take home. Patient States Post-Procedure ride home has been arranged. Discharged via wheelchair to private car for ride home.
== END 2023-03-09 13:44 | disposition home or self-care (01) ==
LOC: ORSCMMR 10:11
PROVIDERS: Podiatrist Foot & Ankle Surgery
PROC: 0Y6Y0Z0 Detachment at Left 5th Toe, Complete, Open Approach (ICD-10-PCS; principal; 2023-03-09 10:30)
DX: M86.10 Other acute osteomyelitis, unspecified site (principal); L03.032 Cellulitis of left toe; E11.52 Type 2 diabetes mellitus with diabetic peripheral angiopathy with gangrene; E11.40 Type 2 diabetes mellitus with diabetic neuropathy, unspecified; I96 Gangrene, not elsewhere classified; I48.91 Unspecified atrial fibrillation; E11.22 Type 2 diabetes mellitus with diabetic chronic kidney disease; I12.9 Hypertensive chronic kidney disease with stage 1 through stage 4 chronic kidney disease, or unspecified chronic kidney disease; N18.9 Chronic kidney disease, unspecified; E78.5 Hyperlipidemia, unspecified; Z79.4 Long term (current) use of insulin; Z79.84 Long term (current) use of oral hypoglycemic drugs; Z79.01 Long term (current) use of anticoagulants; Z79.899 Other long term (current) drug therapy
CPT/HCPCS: 82435; 82947; 84132; 84295; 87071; 87075; 87076; 87077; 87205; 88305; 88311; J0690; J1790; J2250; J2704; J3010; J7060; J7120

== ENCOUNTER 2023-06-14 06:14 | Emergency (ER) | payer BC ==
[~2023-06-14] VITALS: Ht 185.4 cm; Wt 117.9 kg
[~2023-06-14 06:14] MED LIST changes: +LOKELMA10 GM PO; +MULTI-VITAMIN1 EAC2 PO; +TOCO1000 PO; +Vitamin D1000 UNI1 PO
[2023-06-14 07:04] LABS: International Normalized Ratio 1.03; Prothrombin Time Results 10.8 Sec (9.7-11.5)
[2023-06-14 07:11] LABS: Albumin, Blood 3.4 g/dL (3.4-5.0); Albumin/Globulin Ratio 0.8 (0.8-1.8); Bilirubin, Total 0.3 mg/dL (0.1-1.0); Bun/Creatinine Ratio 18.8 (12.0-20.0); Calcium, Blood 9.3 mg/dL (8.5-10.1); Creatinine, Blood 1.49 mg/dL (0.60-1.20); Globulin, Blood 4.3 g/dL (2.2-4.0); Potassium, Blood 4.6 mmol/L (3.5-5.5); Total Protein, Blood 7.7 g/dL (6.4-8.2)
[2023-06-14 07:23] LABS: BASOPHILS ABSOLUTE AUTO 0.06 K/mm3 (0.00-0.23); BASOPHILS PERCENT AUTO 1 % (0-2); EOSINOPHILS ABSOLUTE AUTO 0.34 K/mm3 (0.00-0.68); EOSINOPHILS PERCENT AUTO 5 % (0-6); Hematocrit 43.4 % (37.0-53.0); Hemoglobin 14.2 g/dL (13.5-17.5); IMMATURE GRAN ABSOLUTE AUTO 0.02 K/mm3 (0.00-0.10); IMMATURE GRAN PERCENT AUTO 0 % (0-1); LYMPHOCYTES ABSOLUTE AUTO 2.23 K/mm3 (0.84-5.20); LYMPHOCYTES PERCENT AUTO 33 % (21-46); MONOCYTES ABSOLUTE AUTO 0.59 K/mm3 (0.16-1.47); MONOCYTES PERCENT AUTO 9 % (4-13); Mean Corpuscular HGB 26.8 pg (26.0-34.0); Mean Corpuscular HGB Conc 32.7 g/dL (31.5-36.5); Mean Corpuscular Volume 82 fL (80-100); Mean Platelet Volume 10.7 fL (9.1-12.4); NEUTROPHILS ABSOLUTE AUTO 3.54 K/mm3 (1.96-9.15); NEUTROPHILS PERCENT AUTO 52 % (41-73); Platelet Count 202 K/mm3 (150-400); RDW Coefficient Variation 13.3 % (11.7-14.2); RDW Standard Deviation 39.2 fL (35.1-46.3); White Blood Cell Count 6.78 K/mm3 (4.00-11.30)
[2023-06-14 09:26] VITALS: BP 146/103
== END 2023-06-14 09:25 | disposition home or self-care (01) ==
LOC: ER 06:14
PROVIDERS: Emergency Medicine
DX: I48.91 Unspecified atrial fibrillation (principal); Z79.899 Other long term (current) drug therapy; Z79.84 Long term (current) use of oral hypoglycemic drugs; Z79.4 Long term (current) use of insulin; E11.9 Type 2 diabetes mellitus without complications; I10 Essential (primary) hypertension
CPT/HCPCS: 71045; 80053; 83735; 83880; 84484; 85025; 85610; 93005; 93010; 99284-25; A9270; J7030

== ENCOUNTER 2023-07-22 02:21 | Inpatient (IN) | payer BC ==
[~2023-07-22] VITALS: Ht 182.9 cm; Wt 117.8 kg
[2023-07-22] VITALS (82 sets, daily range): BP systolic 74–157; BP diastolic 25–99
[2023-07-22 02:55] LABS: PCO2 Venous 47.8 mmHg (38-42); pH Blood Venous 7.24 (7.34-7.37)
[2023-07-22 02:56] LABS: Base Excess Venous -7.2 mmol/L; Bicarbonate Venous 17.8 mmol/L (24.0-30.0)
[2023-07-22 03:02] LABS: BASOPHILS ABSOLUTE AUTO 0.06 K/mm3 (0.00-0.23); BASOPHILS PERCENT AUTO 1 % (0-2); EOSINOPHILS ABSOLUTE AUTO 0.03 K/mm3 (0.00-0.68); EOSINOPHILS PERCENT AUTO 0 % (0-6); Hematocrit 43.4 % (37.0-53.0); Hemoglobin 12.7 g/dL (13.5-17.5); IMMATURE GRAN ABSOLUTE AUTO 0.11 K/mm3 (0.00-0.10); IMMATURE GRAN PERCENT AUTO 1 % (0-1); LYMPHOCYTES ABSOLUTE AUTO 3.25 K/mm3 (0.84-5.20); LYMPHOCYTES PERCENT AUTO 35 % (21-46); MONOCYTES ABSOLUTE AUTO 0.76 K/mm3 (0.16-1.47); MONOCYTES PERCENT AUTO 8 % (4-13); Mean Corpuscular HGB 25.2 pg (26.0-34.0); Mean Corpuscular HGB Conc 29.3 g/dL (31.5-36.5); Mean Corpuscular Volume 86 fL (80-100); Mean Platelet Volume 9.6 fL (9.1-12.4); NEUTROPHILS ABSOLUTE AUTO 5.13 K/mm3 (1.96-9.15); NEUTROPHILS PERCENT AUTO 55 % (41-73); NRBC ABSOLUTE 0.06 K/mm3 (0.00-0.02); NRBC Auto 0.6 /100 WBC (0.0-0.2); Platelet Count 389 K/mm3 (150-400); RDW Coefficient Variation 15.1 % (11.7-14.2); RDW Standard Deviation 47.4 fL (35.1-46.3); Red Blood Cell Count 5.03 M/mm3 (4.30-5.90); White Blood Cell Count 9.34 K/mm3 (4.00-11.30)
[2023-07-22 03:10] LABS: Calcium, Ionized (POC) 1.38 mmol/L (1.10-1.46); Chloride (POC) 96 mmol/L (98-108); Creatinine (POC) 2.3 mg/dL (0.8-1.3); Glucose (ISTAT POC) 265 mg/dL (70-99); Hemoglobin (POC) 14.3 g/dL (13.5-17.5); Potassium (POC) 5.4 mmol/L (3.5-5.5); Sodium (POC) 132 mmol/L (135-148); Total CO2 (POC) 24 mmol/L (21-32)
[2023-07-22 03:14] LABS: Albumin/Globulin Ratio 0.6 (0.8-1.8); Bilirubin, Total 1.1 mg/dL (0.1-1.0); Bun/Creatinine Ratio 18.7 (12.0-20.0); Calcium, Blood 8.4 mg/dL (8.5-10.1); Creatinine, Blood 1.98 mg/dL (0.60-1.20); Globulin, Blood 4.8 g/dL (2.2-4.0); Potassium, Blood 5.6 mmol/L (3.5-5.5); Total Protein, Blood 7.8 g/dL (6.4-8.2)
[2023-07-22 03:54] LABS: Thyroid Stimulating Hormone 7.5 uIU/mL (0.360-4.800)
[2023-07-22] MEDS ORDERED: ASPIR 8181 MG PO (05:29)
[2023-07-22] MEDS ORDERED: Amiodarone HCl200 MG PO (05:29)
[2023-07-22] MEDS ORDERED: ACET325 (05:29)
[2023-07-22] MEDS ORDERED: DOCU100 PO (05:30)
[2023-07-22] MEDS ORDERED: ATOM40 PO (05:30)
[2023-07-22] MEDS ORDERED: FURO40 PO (05:30)
[2023-07-22] MEDS ORDERED: FAMO20 PO (05:30)
[2023-07-22] MEDS ORDERED: LOSA50 PO (05:31)
[2023-07-22] MEDS ORDERED: INSULANI SC (05:31)
[2023-07-22] MEDS ORDERED: LOKELMA10 GM (05:31)
[2023-07-22] MEDS ORDERED: METO50 PO (05:32)
[2023-07-22] MEDS ORDERED: NORT10 (05:32)
[2023-07-22] MEDS ORDERED: METF500 PO (05:32)
[2023-07-22] MEDS ORDERED: MAGNESIUM OXID500 MG PO (05:32)
[2023-07-22] MEDS ORDERED: OXYC5 PO (05:33)
[2023-07-22] MEDS ORDERED: WARF5 PO (05:33)
[2023-07-22] MEDS ORDERED: POTCHL20ER PO (05:33)
[2023-07-22] MEDS ORDERED: ATORVASTATIN CA20 MG PO (06:08)
[2023-07-22 06:09] LABS: Source, Urine Foley catheter
[2023-07-22 06:12] LABS: Bilirubin, Urine Neg (Neg); Blood, Urine 3+ (Neg); Glucose Qualitative, Urine 1+ (Neg); Ketones, Urine Neg (Neg); Leukocyte Esterase, Urine Neg (Neg); Nitrite, Urine Neg (Neg); Protein, Urine 4+ (Neg); Specific Gravity, Urine 1.025 (1.003-1.022); Urobilinogen, Urine 1+ (Normal)
[2023-07-22 06:14] LABS: Appearance, Urine Hazy (Clear); Color, Urine Yellow (P-Yellow)
[2023-07-22 06:21] LABS: Amorphous Mod (0-Heavy); Bacteria Mod /hpf; Hyaline Casts 25-50 /lpf (0-2); Red Blood Cells, Urine 0-2 /hpf (0-2); Squamous Epithelial Cells Few /hpf (Few)
--- NOTE | 2023-07-22 07:00 | NUR ---
ASSUMPTION OF CARE: ASSUMED CARE OF PATIENT WITH ARNULFO WALKER COUNTS. PATIENT RESTING IN BED. PATIENT APPEARS COMFORTABLE AND IS TOLERATING THE VENT. AMIO GTT INFUSING AT 1MG/HR, LEVOPHED AT 1 MCG/MIN, EPINEPHRINE AT 2 MCG/MIN, FENTANYL AT 50 MCG/HR AND PRECEDEX AT 0.4 MCG/KG/HR. MAI IN PLACE AND DRAINING. MINIMAL URINE OUTPUT IN BAG AND PER NIGHT RN. 8.0 ETT PLACED AT 25 CM AT TEETH. VENT SETTINGS AC/VC 18/500/5/30%. PATIENT OPENING EYES WITH VERBAL STIMULATION, TRACKING WITH HIS EYES, AND FOLLOWING BASIC COMMANDS.
[2023-07-22 07:03] LABS: International Normalized Ratio 3.72; Prothrombin Time Results 36.3 Sec (9.7-11.5)
--- NOTE | 2023-07-22 08:32 | NUR ---
LAB: lab called to verify labs were received.
[2023-07-22 08:55] LABS: PCO2 Arterial 31.3 mmHg (35-45); PO2 Arterial 102 mmHg (80-100)
[2023-07-22 09:02] LABS: BASOPHILS ABSOLUTE AUTO 0.04 K/mm3 (0.00-0.23); BASOPHILS PERCENT AUTO 0 % (0-2); EOSINOPHILS ABSOLUTE AUTO 0.01 K/mm3 (0.00-0.68); EOSINOPHILS PERCENT AUTO 0 % (0-6); Hematocrit 40.2 % (37.0-53.0); Hemoglobin 12.2 g/dL (13.5-17.5); IMMATURE GRAN ABSOLUTE AUTO 0.24 K/mm3 (0.00-0.10); IMMATURE GRAN PERCENT AUTO 2 % (0-1); LYMPHOCYTES ABSOLUTE AUTO 1.29 K/mm3 (0.84-5.20); LYMPHOCYTES PERCENT AUTO 12 % (21-46); MONOCYTES ABSOLUTE AUTO 0.83 K/mm3 (0.16-1.47); MONOCYTES PERCENT AUTO 8 % (4-13); Mean Corpuscular HGB 25.9 pg (26.0-34.0); Mean Corpuscular HGB Conc 30.3 g/dL (31.5-36.5); Mean Corpuscular Volume 85 fL (80-100); NEUTROPHILS ABSOLUTE AUTO 8.42 K/mm3 (1.96-9.15); NEUTROPHILS PERCENT AUTO 78 % (41-73); NRBC ABSOLUTE 0.15 K/mm3 (0.00-0.02); NRBC Auto 1.4 /100 WBC (0.0-0.2); Platelet Count 342 K/mm3 (150-400); RDW Coefficient Variation 15.4 % (11.7-14.2); RDW Standard Deviation 47.3 fL (35.1-46.3); Red Blood Cell Count 4.71 M/mm3 (4.30-5.90); White Blood Cell Count 10.83 K/mm3 (4.00-11.30)
[2023-07-22 09:36] LABS: Albumin, Blood 2.5 g/dL (3.4-5.0); Albumin/Globulin Ratio 0.6 (0.8-1.8); Bilirubin, Total 2.1 mg/dL (0.1-1.0); Bun/Creatinine Ratio 17.8 (12.0-20.0); Calcium, Blood 8.3 mg/dL (8.5-10.1); Creatinine, Blood 2.3 mg/dL (0.60-1.20); Globulin, Blood 4.5 g/dL (2.2-4.0); Magnesium, Blood 3.2 mg/dL (1.6-2.4); Phosphorus, Blood 6.1 mg/dL (2.5-4.9)
[2023-07-22 09:39] LABS: Potassium, Blood 9.3 mmol/L (3.5-5.5)
--- NOTE | 2023-07-22 09:42 | NUR ---
CRITICAL POTASSIUM: Message left for Dr Deluna regarding potassium.
[2023-07-22 11:12] LABS: Bun/Creatinine Ratio 17.6 (12.0-20.0); Calcium, Blood 8.2 mg/dL (8.5-10.1); Creatinine, Blood 2.5 mg/dL (0.60-1.20); Potassium, Blood 7.4 mmol/L (3.5-5.5)
--- NOTE | 2023-07-22 16:45 | NUR ---
ELEVATED BPS: PATIENT'S BLOOD PRESSURE RESPONDED WELL TO DIALYSIS AND SUBSEQUENT TITRATION UP OF DOBUTAMINE. PATIENT IS NOW HAVING BPS IN THE 140S - 150S. MAPS IN THE 80S TO LOW 100S. DISCUSSED WITH DR. GURROLA. PER DR. GURROLA, NO LONGER WORK TO TITRATE DOBUTAMINE UP TO 5 MCG/KG/MIN. RETURN PATIENT TO INITIATION RATE OF 2.5 MCG/KG/MIN. THIS WAS COMPLETED.
[2023-07-22 17:43] LABS: Albumin, Blood 2.5 g/dL (3.4-5.0); Albumin/Globulin Ratio 0.7 (0.8-1.8); Bilirubin, Total 1.7 mg/dL (0.1-1.0); Bun/Creatinine Ratio 15.8 (12.0-20.0); Calcium, Blood 8.4 mg/dL (8.5-10.1); Creatinine, Blood 2.02 mg/dL (0.60-1.20); Globulin, Blood 3.7 g/dL (2.2-4.0); Total Protein, Blood 6.2 g/dL (6.4-8.2)
[2023-07-22 17:44] LABS: Potassium, Blood 4.9 mmol/L (3.5-5.5)
--- NOTE | 2023-07-22 18:21 | NUR ---
SHIFT SUMMARY: NEURO: WITH LOWER LEVELS OF SEDATION, PATIENT IS OPENING EYES TO VERBAL STIMULI. NODDING HEAD YES AND NO TO QUESTIONS. PATIENT FOLLOWING DIRECTIONS. DENIED PAIN DURING THE DAY. FENTANYL GTT CONTINUES AT 50 MCG/HR. PROPOFOL UP TO 25 MCG/KG/MIN BY THE END OF THE DAY FOR COMFORT AND VENT TOLERANCE. CARDIAC: PATIENT TITRATED OFF OF LEVOPHED AND EPINEPHRINE GTT DURING THE DAY. ATTEMPTED TO TITRATE DOPUTAMINE UP TO 5 MCG/KG/MIN (SEE NURSE'S NOTE). PATIENT ENDED THE SHIFT AT 2.5 MCG/KG/MIN PER DR. GURROLA. BY END OF SHIFT, PATIENT'S SBPS STABLE IN THE 130S-140S WITH MAPS >65. HR IN THE LOW 60S. CONTINUES TO HAVE A PROLONGUED QT AND WIDE QRS (IMPROVED OVER THE AM). RESPIRATORY: VENT SETTINGS AT 18/500/5/30%, ETT 8.0 PLACED AT 25.O CM AT TEETH. SPO2 95-96% THROUGHOUT THE SHIFT. GI/: OGT IN PLACE CONNECTED TO LOW INTERMITTANT SUCTION. NO OUTPUT IN THE CANISTER BY THE END OF THE DAY. MAI IN PLACE AND DRAINING FREELY. MINIMAL OUTPUT FROM THE BLADDER. HEMODIALYSIS PERFORMED IN THE ROOM. PSYCHSOCIAL: FAMILY AND FRIENDS VISITING DURING THE DAY. THEY ARE APPRECIATIVE OF THE CARE PROVIDED AND RESPECTFUL OF CREATING A CALM ENVIRONMENT.
[2023-07-22 19:21] LABS: pH Blood Venous 7.42 (7.34-7.37)
[2023-07-22 19:22] LABS: Base Excess Venous 3.5 mmol/L; Bicarbonate Venous 26.2 mmol/L (24.0-30.0); PCO2 Venous 43.8 mmHg (38-42)
--- NOTE | 2023-07-22 20:39 | NUR ---
DR LINK CALLED AND REQUESTED DOBUTAMINE INCREASED TO 4 MCQ/KG/MIN AND THAN REPEAT MIX VENOUS 1 HOUR AFTER DIRECTLY FROM CENTRAL LINE
--- NOTE | 2023-07-22 21:20 | NUR ---
MILL HAND NOTIFIED DR. NINO OF POTASSIUM LEVEL BEING 5.1. ORDERS RECEIVED TO RECHECK POTASSIUM LEVEL IN THE AM AND TO NOTIFY IF POTASSIUM IS GREATER THEN 5.8. PROVIDER AWARE PATIENT WILL HAVE MINIMAL TO NO URINE OUTPUT AND DOES NOT NEED TO BE NOTIFIED DURING THIS SHIFT. DR. BYNUM WILL FOLLOW UP WITH THE PATIENT IN THE AM.
[2023-07-22 21:36] LABS: Bicarbonate Venous 25.9 mmol/L (24.0-30.0); PCO2 Venous 45.9 mmHg (38-42); pH Blood Venous 7.39 (7.34-7.37)
[2023-07-22 21:37] LABS: PO2 Venous 32.3 mmHg (38-42)
[2023-07-23] VITALS (98 sets, daily range): BP systolic 116–183; BP diastolic 57–85
[2023-07-23 00:31] LABS: Base Excess Venous 3.8 mmol/L; Bicarbonate Venous 26.9 mmol/L (24.0-30.0); PCO2 Venous 42.8 mmHg (38-42); pH Blood Venous 7.43 (7.34-7.37)
[2023-07-23 00:32] LABS: PO2 Venous 41.3 mmHg (38-42)
[2023-07-23 03:16] LABS: BASOPHILS ABSOLUTE AUTO 0.06 K/mm3 (0.00-0.23); BASOPHILS PERCENT AUTO 1 % (0-2); EOSINOPHILS PERCENT AUTO 1 % (0-6); Hemoglobin 10.4 g/dL (13.5-17.5); IMMATURE GRAN ABSOLUTE AUTO 0.07 K/mm3 (0.00-0.10); IMMATURE GRAN PERCENT AUTO 1 % (0-1); LYMPHOCYTES ABSOLUTE AUTO 1.98 K/mm3 (0.84-5.20); LYMPHOCYTES PERCENT AUTO 22 % (21-46); MONOCYTES ABSOLUTE AUTO 0.57 K/mm3 (0.16-1.47); MONOCYTES PERCENT AUTO 6 % (4-13); Mean Corpuscular HGB 25.8 pg (26.0-34.0); Mean Corpuscular HGB Conc 31.5 g/dL (31.5-36.5); Mean Corpuscular Volume 82 fL (80-100); Mean Platelet Volume 9.8 fL (9.1-12.4); NEUTROPHILS PERCENT AUTO 69 % (41-73); NRBC ABSOLUTE 0.04 K/mm3 (0.00-0.02); NRBC Auto 0.4 /100 WBC (0.0-0.2); Platelet Count 218 K/mm3 (150-400); RDW Coefficient Variation 15.6 % (11.7-14.2); RDW Standard Deviation 46.2 fL (35.1-46.3); Red Blood Cell Count 4.03 M/mm3 (4.30-5.90); White Blood Cell Count 8.98 K/mm3 (4.00-11.30)
[2023-07-23 03:29] LABS: Bun/Creatinine Ratio 15.2 (12.0-20.0); Creatinine, Blood 2.64 mg/dL (0.60-1.20); Magnesium, Blood 2.4 mg/dL (1.6-2.4); Potassium, Blood 4.5 mmol/L (3.5-5.5)
[2023-07-23 03:30] LABS: International Normalized Ratio 3.91
[2023-07-23 06:52] LABS: Albumin, Blood 2.2 g/dL (3.4-5.0); Albumin/Globulin Ratio 0.6 (0.8-1.8); Bilirubin, Total 1.8 mg/dL (0.1-1.0); Bun/Creatinine Ratio 14.2 (12.0-20.0); Creatinine, Blood 2.82 mg/dL (0.60-1.20); Globulin, Blood 3.5 g/dL (2.2-4.0); Phosphorus, Blood 3.6 mg/dL (2.5-4.9); Potassium, Blood 4.4 mmol/L (3.5-5.5); Total Protein, Blood 5.7 g/dL (6.4-8.2)
[2023-07-23 08:10] LABS: Alanine Aminotransfer (ALT/SGP 6750 U/L (12-78); Aspartate Aminotrans (AST/SGOT 14795 U/L (12-37)
--- NOTE | 2023-07-23 08:28 | NUR ---
CARE OF PT ASSUMED AT 0700. BEDSIDE SHIFT REPORT TAKEN. PT ON FENTANYL GTT AT 50MCG/HR AND PROPOFOL AT 25MCG/KG/MIN [facility]. RASS -2. PT AWAKENS TO VOICE AND WITH CARE. PT ABLE TO FOLLOW SIMPLE COMMANDS. EQUAL AND STRONG LEFT AND RIGHT HAND AIRCRAFT SYSTEMS TECHNICIAN TO COMMAND. NODS HEAD APPROPRIATELY TO QUESTIONS. NODS HEAD NO TO PAIN. PT ON DOBUTAMINE GTT AT 4MCG/KG/MIN. PRESSORS HAVE BEEN OFF BUT ARE AVAILABLE. PT'S SBP 130'S-150'S. MAP >65. AMIODARONE GTT AT 0.5MG/MIN. DR CORTEZ AT BEDSIDE THIS AM AROUND 0730; DR CORTEZ EXAMINED PT AND REVIEWED CHART, FULL UPDATE GIVEN TO DR CORTEZ. AMIO TO CONTINUE AT 0.5MG/MIN. DR CORTEZ WOULD LIKE PROFESSIONAL BUILDER TO REMOVE FLUID TODAY, MAY START LEVOPHED TO KEEP MAP >65. DOBUTAMINE INCREASED TO 5MCG AT [address] CORTEZ. VENT SETTINGS AC/VC+ 18/500/30%/8; SMALL AMT OF CESAR SECRETIONS SX'D FROM ETT. TEMP 99.9, FAN ON PT.
--- NOTE | 2023-07-23 08:49 | NUR ---
PT'S FRANCISCA AT BEDSIDE, UPDATED. FRANCISCA HAD ALSO BEEN UPDATED BY DR CORTEZ THIS AM BY PHONE CALL. HD PLANNED FOR TODAY AROUND 0900.
--- NOTE | 2023-07-23 13:17 | NUR ---
3600 IN FLUID REMOVED W DYALYSIS; PT TOLERATED HD WELL. BP REMAINED STABLE T/O, PRESSORS WHERE NOT NEEDED/STARTED.
--- NOTE | 2023-07-23 17:35 | NUR ---
307CC CLEARED FROM FENTANYL PUMP MARGIE GREEN RN.
--- NOTE | 2023-07-23 17:57 | NUR ---
PT DID NOT REQUIRE ANY PRESSORS TODAY. BP WNL TO SLIGHTLY HTN T/O SHIFT. 3600CC REMOVED DURING HD, PT TOLERATED WELL. AROUND 1500, HR INCREASED TO 99, P WAVE NOT NOTED ON MONITOR. DR ZEE AT BEDSIDE, BP REMAINED STABLE. EKG TAKEN AND SHOWN TO DR ZEE. NO NEW ORDERS, P WAVES AGAIN NOTED ON MONITOR. DR CORTEZ IN AT 1745 TO CHECK ON PT; EKG FROM 1500 REVIEWED; POSSIBLE AFLUTTER. ISOSORBIDE AND HYDRALAZINE INCREASED TO 15MG Q8 WITH A 5MG NOW DOSE FOR EACH. STAT VBG ORDERED. RESULTS TO BE CALLED TO DR CORTEZ. DOBUTAMINE TO STAY AT 5MCG. PT RASS -2 FOR ENTIRE SHIFT, WAKING UP TO VOICE AND CARE, NODDED NO TO PAIN T/O SHIFT. PT'S UPDATED SEVERAL TIMES T/O SHIFT BY MYSELF AND BY DR CORTEZ AT 1745. 400CC U/O. PROPOFOL REMAINS AT 25MCG, FENTANYL REMAINS AT 50MCG/HR. AMIODARONE TO CONTINUE AT 0.5MG/MIN
[2023-07-23 18:18] LABS: Base Excess Venous 8.8 mmol/L; Bicarbonate Venous 31.3 mmol/L (24.0-30.0); PCO2 Venous 41.1 mmHg (38-42)
--- NOTE | 2023-07-23 18:29 | NUR ---
VBG RESULTS/S02 OF 71.[address] CORTEZ, DOBUTAMINE DECREASED TO 4MCG/KG/MIN
[2023-07-24] VITALS (95 sets, daily range): BP systolic 88–1085; BP diastolic 49–77
[2023-07-24 03:50] LABS: BASOPHILS ABSOLUTE AUTO 0.03 K/mm3 (0.00-0.23); BASOPHILS PERCENT AUTO 1 % (0-2); EOSINOPHILS ABSOLUTE AUTO 0.34 K/mm3 (0.00-0.68); EOSINOPHILS PERCENT AUTO 6 % (0-6); Hematocrit 32.2 % (37.0-53.0); Hemoglobin 10.2 g/dL (13.5-17.5); IMMATURE GRAN ABSOLUTE AUTO 0.03 K/mm3 (0.00-0.10); IMMATURE GRAN PERCENT AUTO 1 % (0-1); LYMPHOCYTES ABSOLUTE AUTO 1.21 K/mm3 (0.84-5.20); LYMPHOCYTES PERCENT AUTO 20 % (21-46); MONOCYTES ABSOLUTE AUTO 0.34 K/mm3 (0.16-1.47); MONOCYTES PERCENT AUTO 6 % (4-13); Mean Corpuscular HGB 25.4 pg (26.0-34.0); Mean Corpuscular HGB Conc 31.7 g/dL (31.5-36.5); Mean Corpuscular Volume 80 fL (80-100); Mean Platelet Volume 9.3 fL (9.1-12.4); NEUTROPHILS ABSOLUTE AUTO 4.27 K/mm3 (1.96-9.15); NEUTROPHILS PERCENT AUTO 69 % (41-73); Platelet Count 194 K/mm3 (150-400); RDW Coefficient Variation 15.6 % (11.7-14.2); RDW Standard Deviation 45.1 fL (35.1-46.3); Red Blood Cell Count 4.01 M/mm3 (4.30-5.90); White Blood Cell Count 6.22 K/mm3 (4.00-11.30)
[2023-07-24 04:07] LABS: International Normalized Ratio 3.13; Prothrombin Time Results 30.8 Sec (9.7-11.5)
[2023-07-24 05:03] LABS: Albumin, Blood 2.1 g/dL (3.4-5.0); Albumin/Globulin Ratio 0.6 (0.8-1.8); Bilirubin, Total 2.7 mg/dL (0.1-1.0); Bun/Creatinine Ratio 11.2 (12.0-20.0); Calcium, Blood 7.6 mg/dL (8.5-10.1); Creatinine, Blood 2.76 mg/dL (0.60-1.20); Globulin, Blood 3.3 g/dL (2.2-4.0); Phosphorus, Blood 2.7 mg/dL (2.5-4.9); Potassium, Blood 3.8 mmol/L (3.5-5.5); Total Protein, Blood 5.4 g/dL (6.4-8.2)
[2023-07-24 06:05] LABS: Base Excess Venous 8.4 mmol/L; Bicarbonate Venous 31.1 mmol/L (24.0-30.0); PCO2 Venous 38.8 mmHg (38-42); PO2 Venous 38.1 mmHg (38-42); pH Blood Venous 7.52 (7.34-7.37)
[2023-07-24 07:40] LABS: Base Excess Venous 8.6 mmol/L; Bicarbonate Venous 31.2 mmol/L (24.0-30.0); PCO2 Venous 37.4 mmHg (38-42)
[2023-07-24 07:42] LABS: pH Blood Venous 7.53 (7.34-7.37)
[2023-07-24 07:44] LABS: PO2 Venous 33.3 mmHg (38-42)
--- NOTE | 2023-07-24 08:11 | NUR ---
SO2 RESULTS OF 65.[address] CORTEZ; DOBUTAMINE INCREASED TO 2.5MCG PER DR CORTEZ. QTC PROLONGED, EKG COMPLETED, RESULTS GIVEN TO DR CORTEZ. PH CRITICAL HIGH OF 7.53 ON VBG; RESULTS TO BE GIVEN TO DR ZEE. DR GONZALEZ AT BEDSIDE; UPDATE GIVEN.
--- NOTE | 2023-07-24 08:34 | NUR ---
CARE OF PT ASSUMED AT 0700, BEDSIDE SHIFT REPORT TAKEN. PT SEDATED ON PROPOFOL AT 30MCG FOR MECH VENT TOLERANCE, RASS -3, UNABLE TO FOLLOW COMMANDS OR NOD HEAD TO QUESTIONS HE DID YESTERDAY, ATTEMPTS TO OPEN EYES TO VOICE. PROPOFOL DECREASED TO 25MCG. FENTANYL GTT AT 50MCG/HR. AMIODARONE AT 0.5MG/MIN. DOBUTAMINE INITIALLY AT 1MCG/KG/MIN AND WAS LATER INCREASED BY DR CORTEZ TO 2.5MCG. DR ZEE IN AT 0840 AND GIVEN FULL UPDATE. CRITICAL PH CALLED TO DR ZEE. PLANNED FOR THIS AM.
[2023-07-24 08:51] LABS: HEPATITIS B SURFACE ANTIBODY 6.03 IU/L
--- NOTE | 2023-07-24 09:54 | NUR ---
HD STARTED AT 0900. PRESSURE STARTED TO TREND DOWN AROUND 0915. LEVOPHED STARTED AT 0950 AT 2MCG TO KEEP MAP >65.
[2023-07-24 10:52] LABS: Base Excess Venous 7.4 mmol/L; Bicarbonate Venous 30.1 mmol/L (24.0-30.0); PCO2 Venous 38.7 mmHg (38-42); pH Blood Venous 7.51 (7.34-7.37)
[2023-07-24 10:53] LABS: PO2 Venous 34.5 mmHg (38-42)
--- NOTE | 2023-07-24 10:53 | NUR ---
DR CORTEZ AT BEDSIDE TO CHECK ON PT; UPDATED PT'S . STAT VBG FOR S02 AND IONIZED CA ORDERED, RSULTS TO BE CALLED IN TO DR CORTEZ. LEVOPHED AT 1MCG TO KEEP MAP >65.
--- NOTE | 2023-07-24 11:17 | NUR ---
SO2 RESULTS GIVEN TO DR CORTEZ; DOBUTAMINE INCREASED TO 4MCG PER DR CORTEZ. REPEAT SO2 ORDERED FOR 1200; RT NOTIFIED.DR ZEE GIVEN IONIZED CA RESULTS, NO PLANS TO REPLACE AT THIS TIME BUT REPEAT IONIZED CA ORDERED FOR AM. ORDERS RECEIVED TO START SBT FROM DR ZEE; RT NOTIFIED.
[2023-07-24 12:06] LABS: HEPATITIS A ANTIBODY, IGM Negative (Negative); HEPATITIS B CORE ANTIBODY, IGM Negative (Negative); HEPATITIS B SURFACE ANTIGEN Negative (Negative); HEPATITIS C AB CIA INTERP Negative (Negative); HEPATITIS C ANTIBODY CIA INDEX 0.05 IV
[2023-07-24 12:23] LABS: Base Excess Venous 6.4 mmol/L; Bicarbonate Venous 29.3 mmol/L (24.0-30.0); PCO2 Venous 39.7 mmHg (38-42); pH Blood Venous 7.48 (7.34-7.37)
[2023-07-24 12:24] LABS: PO2 Venous 40.3 mmHg (38-42)
--- NOTE | 2023-07-24 13:27 | NUR ---
HD ENDED AT 1200, 3,600CC TAKEN OFF; PT TOLERATED HD RELATIVELY WELL. LEVOPHED STARTED AT 1MCG TO KEEP MAP >65, AND WAS TURNED OFF NEAR END OF HD. 1200 SO2 IMPROVED AT 74.9; DR GURROLA UPDATED.
--- NOTE | 2023-07-24 14:13 | NUR ---
PROPOFOL PLACED ON STANDBY. PT WIDE AWAKE, CALM, AND FOLLOWING DIRECTIONS WITHIN 5MIN OF PROPOFOL BEING OFF. RT NOW AT BEDSIDE AND HAS PLACED PT ON SPONT BREATHING TRIAL 7 30% AT 1415.
--- NOTE | 2023-07-24 14:46 | NUR ---
DR CORTEZ AT BEDSIDE, NOW DOSE OF LISINOPRIL ORDERED AND GIVEN. PT NOW FULL CODE, PURPLE BAND REMOVED. DR ZEE UPDATED ON SBT. DR ZEE WOULD LIKE PT TO STAY ON SBT X 2HRS TOLERATED, THEN WOULD LIKE PT PLACED AGAIN ON PREVIOUS SETTINGS W POSSIBLE EXTUBATION TOMORROW; RT UPDATED.
--- NOTE | 2023-07-24 15:20 | NUR ---
PT ACTIVELY VOMITING, GAGGING ON ETT. PT CALM AND AWAKE, HR 90-120. PT SUCTIONED. RT CALLED, PT PLACED BACK ON PREVIOUS VENT SETTINGS AC/VC+ 18/500/30%/8. PROPOFOL RESTARTED AT 30MCG.
--- NOTE | 2023-07-24 16:05 | NUR ---
DR CORTEZ AND DR ZEE UPDATED. PT TO STAY ON MECH VENT OVERNIGHT AT CURRENT SETTINGS. DOBUTAMINE TO STAY AT 4MCG.
--- NOTE | 2023-07-24 16:21 | NUR ---
DR CORTEZ AT BEDSIDE TO SEE PT. SO2 ORDERED FOR 1HR, RESULTS TO BE CALLED TO DR CORTEZ. PT ON PROPOFOL AT 30MCG, CALM, RASS -2. BP 115/59 MAP 75. PT IN SINUS W RATE 80'S.
[2023-07-24 17:20] LABS: Base Excess Venous 4.9 mmol/L; Bicarbonate Venous 28.3 mmol/L (24.0-30.0); PCO2 Venous 37.4 mmHg (38-42); pH Blood Venous 7.49 (7.34-7.37)
--- NOTE | 2023-07-24 17:22 | NUR ---
288CC CLEARED FROM FENTANYL PUMP WITH WANDER WALTER RN AT 1715.
--- NOTE | 2023-07-24 17:45 | NUR ---
SO2 RESULTS GIVEN TO DR CORTEZ. DOBUTAMINE DECREASED TO 2.5MCG PER DR CORTEZ. REPEAT SO2 ORDERED FOR 1844. LISINOPRIL 5MG ORDERED FOR NOW. PRN HYDRALAZINE AVAILABLE FOR HTN.
[2023-07-24 18:53] LABS: Base Excess Venous 5.1 mmol/L; Bicarbonate Venous 28.7 mmol/L (24.0-30.0); PCO2 Venous 35.8 mmHg (38-42); PO2 Venous 44.1 mmHg (38-42); pH Blood Venous 7.51 (7.34-7.37)
--- NOTE | 2023-07-24 19:25 | NUR ---
SO2 CALL[address] GURROLA. DOBUTAMINE PLACED ON STANDBY PER DR GURROLA W REPEAT SO2 IN ONE HOUR. RESULTS TO BE CALLED TO DR GURROLA. BEDSIDE SHIFT REPORT GIVEN TO ONCOMING RN.
--- NOTE | 2023-07-24 19:53 | NUR ---
ASSESSMENT/ASSUMED CARE PT INTUBATED AND ON [facility] VENT. OPENS EYES TO VERBAL STIMULI AND FOLLOWS SIMPLE INSTRUCTIONS. RESTING QUIETLY WHEN UNDISTURBED. BILAT SOFT WRIST RESTRAINTS ON. SKIN INTACT. LUNGS CLEAR BUT DECREASE. VENT SETTINGS AC/VC+ 18/500/8/30%. RESP EVEN AND NONLABORED. HEART RATE IN THE 60-70'S WITH DOBUTAMINE OFF. WILL BE DRAWING ANOTHER SVO2 AT 2030. BT+ OG CLAMPED. ABD FIRM. CENTRAL LINE TO RIGHT IJ WITH AMIODARONE AT 0.5 MG/MIN, DOBUTAMINE ON STANDBY, LEVOPHED ON STANDBY, PROPOFOL AT 30 MCQ/KG/MIN AND FENTANYL GTT AT 50 MCQ/HR. SITE CLEAR AND DRSG INTACT. DIALYSIS CATH WITH IV PIGTAIL TO LEFT GROIN SITE CLEAR AND DRSG INTACT. MAI WITH DARK YELLOW URINE DRAINING. LEW AND CATH CARE DONE.
[2023-07-24 20:23] LABS: Base Excess Venous 5.8 mmol/L; Bicarbonate Venous 28.6 mmol/L (24.0-30.0); PCO2 Venous 37.6 mmHg (38-42)
--- NOTE | 2023-07-24 20:43 | NUR ---
MD NOTIFICATION CALLED DR GURROLA CALLED WITH REPEAT SVO2 RESULTS OFF DOBUTAMINE. SVO2 56.7. RESTARTED DOBUTAMINE AT 2.5 MCQ/KG/MIN. WILL REPEAT SVO2 AT 2130.
[2023-07-24 21:36] LABS: Base Excess Venous 5.3 mmol/L; Bicarbonate Venous 28.5 mmol/L (24.0-30.0); PCO2 Venous 37.1 mmHg (38-42); pH Blood Venous 7.49 (7.34-7.37)
[2023-07-24 21:37] LABS: PO2 Venous 41.2 mmHg (38-42)
--- NOTE | 2023-07-24 21:40 | NUR ---
MD NOTIFICATION DR IZABELA SMITH SVO2 77.1. PT TO REMAIN ON DOBUTAMINE AT 2.5 MCQ/KG/MIN DURING THE NIGHT, AND REPEAT SVO2 AND EKG AT 0500. PT TO BE MED WITH HYDRALAZINE FOR SBP GREATER THAN 140.
[2023-07-25] VITALS (107 sets, daily range): BP systolic 96–1211; BP diastolic 52–105
[2023-07-25 03:52] LABS: BASOPHILS ABSOLUTE AUTO 0.02 K/mm3 (0.00-0.23); BASOPHILS PERCENT AUTO 0 % (0-2); EOSINOPHILS ABSOLUTE AUTO 0.22 K/mm3 (0.00-0.68); EOSINOPHILS PERCENT AUTO 4 % (0-6); Hematocrit 33.2 % (37.0-53.0); Hemoglobin 10.5 g/dL (13.5-17.5); IMMATURE GRAN ABSOLUTE AUTO 0.03 K/mm3 (0.00-0.10); IMMATURE GRAN PERCENT AUTO 1 % (0-1); LYMPHOCYTES ABSOLUTE AUTO 0.97 K/mm3 (0.84-5.20); LYMPHOCYTES PERCENT AUTO 17 % (21-46); MONOCYTES ABSOLUTE AUTO 0.42 K/mm3 (0.16-1.47); MONOCYTES PERCENT AUTO 7 % (4-13); Mean Corpuscular HGB 25.2 pg (26.0-34.0); Mean Corpuscular HGB Conc 31.6 g/dL (31.5-36.5); Mean Corpuscular Volume 80 fL (80-100); Mean Platelet Volume 9.1 fL (9.1-12.4); NEUTROPHILS ABSOLUTE AUTO 4.01 K/mm3 (1.96-9.15); NEUTROPHILS PERCENT AUTO 71 % (41-73); Platelet Count 192 K/mm3 (150-400); RDW Coefficient Variation 15.9 % (11.7-14.2); Red Blood Cell Count 4.16 M/mm3 (4.30-5.90); White Blood Cell Count 5.67 K/mm3 (4.00-11.30)
[2023-07-25 04:07] LABS: International Normalized Ratio 2.61
[2023-07-25 04:27] LABS: Albumin, Blood 2.1 g/dL (3.4-5.0); Albumin/Globulin Ratio 0.6 (0.8-1.8); Bilirubin, Total 3.8 mg/dL (0.1-1.0); Bun/Creatinine Ratio 12.5 (12.0-20.0); Calcium, Blood 7.5 mg/dL (8.5-10.1); Creatinine, Blood 2.96 mg/dL (0.60-1.20); Globulin, Blood 3.6 g/dL (2.2-4.0); Phosphorus, Blood 3.8 mg/dL (2.5-4.9); Potassium, Blood 3.9 mmol/L (3.5-5.5); Total Protein, Blood 5.7 g/dL (6.4-8.2)
[2023-07-25 05:00] LABS: Base Excess Venous 5.2 mmol/L; Bicarbonate Venous 28.4 mmol/L (24.0-30.0); PO2 Venous 40.1 mmHg (38-42); pH Blood Venous 7.49 (7.34-7.37)
--- NOTE | 2023-07-25 05:23 | NUR ---
MD NOTIFICATION DR GURROLA CALLED AND UPDATE GIVEN WITH VS AND SVO2 OF 74.5. RECEIVED ORDERS TO GIVE LISINOPRIL NOW AND REPEAT SVO2 1 HOUR AFTER.
--- NOTE | 2023-07-25 05:50 | NUR ---
SHIFT SUMMARY PT CONT INTUBATED AND ON MECH VENT. NO VENT CHANGES DURING THE NIGHT. LUNGS CLEAR BUT DECREASED IN THE BASES. VENT SETTTINGS AC/VC+ 18/500/8/30%. SUCTIONING SMALL AMT THICK SECRECTIONS VIA ET TUBE. HEART RATE IN THE 70'S DURING THE NIGHT. PT ON DOBUTAMINE AT 2.5 MCQ/KG/MIN. DR GURROLA TITRATING WITH SV02. PT GIVEN LISINOPRIL 2.5 MG AND WITH REDRAW SVO2 AT 0630. PT TURNED SIDE TO SIDE DURING THE NIGHT. DR BYNUM NOTIFIED ABOUT AM LABS. NO DIALYSIS TODAY. PT MED WITH TWO DOSES OF HYDRALAZINE DURING THE NIGHT TO KEEP SBP LESS THAN 140. REPORT TO ON COMING NURSE
[2023-07-25 06:37] LABS: Base Excess Venous 5.6 mmol/L; Bicarbonate Venous 28.7 mmol/L (24.0-30.0); pH Blood Venous 7.49 (7.34-7.37)
[2023-07-25 06:38] LABS: PO2 Venous 38.2 mmHg (38-42)
--- NOTE | 2023-07-25 06:55 | NUR ---
DR GURROLA INTO SEE PT. REPORTED SVO2 72.5. DECREASED DOBUTAMINE TO 1 MCQ/KG/MIN. HELD HYDRALAZINE FOR NOW. REPEAT SVO2 AT 0800.
--- NOTE | 2023-07-25 07:00 | NUR ---
ASSUMPTION OF CARE BEDSIDE REPORT RECEIVED FROM ANTONELLA WILLIAM. HE IS RECEIVING PROPOFOL 30MCG/KG/MIN, FENTANYL 50MCG/HR, AMIODARONE 0.5MG/MIN, AND DOBUTAMINE 1MCG/KG/MIN. HE IS ON THE VENT WITH SETTINGS AC/VC+ 18/500/8/30%. HE IS IN SINUS RHYTHM ON MONITOR WITH RATE IN 70S. BP STABLE WITH MAP >65. TEMP MAI PATENT AND DRAINING TERRI URINE TO GRAVITY. RIJ CENTRAL LINE IN PLACE. L FEMORAL DIALYSIS CATH IN PLACE. DR GURROLA AT BEDSIDE, PLAN FOR VBG AT 0800.
[2023-07-25 08:12] LABS: Base Excess Venous 5.2 mmol/L; Bicarbonate Venous 28.3 mmol/L (24.0-30.0); PCO2 Venous 37.3 mmHg (38-42); pH Blood Venous 7.49 (7.34-7.37)
[2023-07-25 08:13] LABS: PO2 Venous 36.6 mmHg (38-42)
--- NOTE | 2023-07-25 08:30 | NUR ---
UPDATE VBG DONE, RESULTS GIVEN TO DR GURROLA. PLAN FOR REPEAT AT 1200. PLAN FOR DIALYSIS TODAY. PT HAD SEDATION VACATION WITH VENT SETTINGS SPONT 10/5/30%. RR 17-23, TV 300S. AFTER ABOUT AN HOUR, PT BEGAN TO COUGH/GAG. PT RESEDATED WITH PROPOFOL 20MCG/KG/MIN AND TRANSITIONED TO PREVIOUS VENT SETTINGS.
[2023-07-25 12:18] LABS: pH Blood Venous 7.52 (7.34-7.37)
[2023-07-25 12:19] LABS: Base Excess Venous 9.9 mmol/L; Bicarbonate Venous 32.1 mmol/L (24.0-30.0); PCO2 Venous 40 mmHg (38-42); PO2 Venous 33.3 mmHg (38-42)
[2023-07-25 13:53] LABS: Anti-Xa UFH, PHA Monitoring <0.10 IU/mL
[2023-07-25 13:59] LABS: Base Excess Venous 8.3 mmol/L; Bicarbonate Venous 31.2 mmol/L (24.0-30.0); PCO2 Venous 36.8 mmHg (38-42); pH Blood Venous 7.53 (7.34-7.37)
[2023-07-25 14:00] LABS: PO2 Venous 38.1 mmHg (38-42)
--- NOTE | 2023-07-25 15:02 | NUR ---
WEDDING RING PT HAD A BLACK METAL RING ON L HAND. REMOVED DUE TO EDEMA AND GIVEN TO LUIS DANIEL ESPINOSA IN A SPECIMEN CUP.
[2023-07-25 17:08] LABS: Base Excess Venous 8.1 mmol/L; Bicarbonate Venous 30.8 mmol/L (24.0-30.0); PCO2 Venous 38.5 mmHg (38-42); PO2 Venous 36.9 mmHg (38-42); pH Blood Venous 7.51 (7.34-7.37)
--- NOTE | 2023-07-25 17:39 | NUR ---
SHIFT SUMMARY PT RECEIVING DOBUTAMINE 2MCG/KG/MIN, AMIODARONE 0.5MG/HR, PROPOFOL 30MCG/KG/MIN, AND FENTANYL 50MCG/HR. HE REMAINS INTUBATED WITH VENT SETTINGS AC/VC+ 18/500/5/30%. SEDATION VACATION DONE THIS AM. PT WOKE, WAS ABLE TO COMMUNICATE BY NODDING/SHAKING HEAD AND FOLLOWING SIMPLE COMMANDS WITH LIMBS. HE WAS ON SPONT 10/5 FOR APPROX 1HR. PT BECAME ANXIOUS AND COUGHING/GAGGING AND SEDATION WAS RESTARTED. WITH PROPOFOL ON, PT WILL OPEN EYES TO VERBAL STIMULI AND SHAKES HEAD "NO" TO PAIN. HE HAD A MODERATE AMOUNT OF THICK ETT SECRETIONS TODAY. LUNGS ARE CLEAR. SINUS RHYTHM ON MONITOR WITH RATE IN 70S. SBP 120S-160S. PT HAD MULTIPLE VBGS DONE FOR SVO2 VALUES THAT WERE GIVEN TO DR GURROLA. TRICKLE TUBE FEEDS STARTED THIS AFTERNOON. BOWEL TONES HYPOACTIVE, ABDOMEN SOFT. MAI PATENT AND DRAINING GREEN/BROWN URINE TO GRAVITY WITH SHIFT OUTPUT OF 700ML. HE DID HAVE DIALYSIS TODAY AND TOLERATED WELL. AT BEDSIDE THROUGHOUT THE DAY AND UPDATED.
[2023-07-25 20:00] LABS: Base Excess Venous 8.2 mmol/L; Bicarbonate Venous 30.9 mmol/L (24.0-30.0); PCO2 Venous 39.4 mmHg (38-42); PO2 Venous 37.6 mmHg (38-42); pH Blood Venous 7.51 (7.34-7.37)
--- NOTE | 2023-07-25 20:00 | NUR ---
ASSESSMENT/ASSUMED CARE PT INTUBATED AND ON [facility] VENT. OPENS EYES TO VERBAL STIMULI. FOLLOWS SIMPLE INSTRUCTIONS. LUNGS CLEAR BUT DECREASED. RT SUCTIONED THICK SECRECTIONS VIA ET TUBE. VENT SETTINGS AC/VC+ 18/500/5/30%. RESP EVEN AND NONLABORED. HEART RATE REGULAR IN THE 70'S. BP STABLE. DOBUTAMINE AT 2 MCQ/KG/MIN. MED WITH HYDRALAZINE TO KEEP SBP BELOW 140. CALL OUT TO DR GURROLA WITH SVO2 74.4%. AMIODARONE AT 0.5 MG/MIN. PROPOFOL AT 30 MCQ/KG/MIN AND FENTANYL GTT AT 50 MCQ/HR FOR SEDATION. BT+ ABD FIRM. TUBE FEED VIA OG VITAL HP AT 10 ML/HR WITH WATER 30 ML Q4HR. WILL INCREASE TUBE FEED AT MIDNIGHT IF NO PROBLEMS. CENTRAL LINE TO RIGHT IJ, DRSG INTACT AND SITE CLEAR. DIALYSIS CATH TO LEFT GROIN SITE CLEAR AND DRSG INTACT. BILAT SOFT WRIST RESTRAINTS ON. MAI CATH PATENT DRAINING DARK URINE. REPOSITIIONED AND ORAL CARE DONE.
--- NOTE | 2023-07-25 20:19 | NUR ---
MD UPDATE NOTIFIED DR GURROLA SVO2 74.4%. REVIEWED VS. CONT DOBUTAMINE AT 2 MCQ/KG/MIN AND REPEAT SVO2 AND EKG IN AM. MED WITH HYDRALAZINE TO KEEP SBP BELOW 140.
[2023-07-25 20:21] LABS: International Normalized Ratio 2.47; Prothrombin Time Results 24.6 Sec (9.7-11.5)
--- NOTE | 2023-07-25 20:35 | NUR ---
HTN PT MED WITH HYDRALAZINE 5 MG
--- NOTE | 2023-07-25 21:00 | NUR ---
HEPARIN GTT STARTED AT 15 UNITS/KG/HR.
[2023-07-26] VITALS (104 sets, daily range): BP systolic 89–174; BP diastolic 46–687
[2023-07-26 03:25] LABS: BASOPHILS ABSOLUTE AUTO 0.05 K/mm3 (0.00-0.23); BASOPHILS PERCENT AUTO 1 % (0-2); EOSINOPHILS ABSOLUTE AUTO 0.25 K/mm3 (0.00-0.68); EOSINOPHILS PERCENT AUTO 4 % (0-6); Hematocrit 32.2 % (37.0-53.0); IMMATURE GRAN ABSOLUTE AUTO 0.03 K/mm3 (0.00-0.10); IMMATURE GRAN PERCENT AUTO 0 % (0-1); LYMPHOCYTES ABSOLUTE AUTO 1.14 K/mm3 (0.84-5.20); LYMPHOCYTES PERCENT AUTO 17 % (21-46); MONOCYTES ABSOLUTE AUTO 0.69 K/mm3 (0.16-1.47); MONOCYTES PERCENT AUTO 10 % (4-13); Mean Corpuscular HGB Conc 31.1 g/dL (31.5-36.5); Mean Corpuscular Volume 81 fL (80-100); Mean Platelet Volume 9.1 fL (9.1-12.4); NEUTROPHILS ABSOLUTE AUTO 4.59 K/mm3 (1.96-9.15); NEUTROPHILS PERCENT AUTO 68 % (41-73); Platelet Count 191 K/mm3 (150-400); RDW Coefficient Variation 16.3 % (11.7-14.2); RDW Standard Deviation 47.3 fL (35.1-46.3); White Blood Cell Count 6.75 K/mm3 (4.00-11.30)
[2023-07-26 03:43] LABS: Anti-Xa UFH, PHA Monitoring 0.26 IU/mL; International Normalized Ratio 2.52; Prothrombin Time Results 25.1 Sec (9.7-11.5)
[2023-07-26 03:54] LABS: Albumin/Globulin Ratio 0.6 (0.8-1.8); Bilirubin, Total 4.3 mg/dL (0.1-1.0); Calcium, Blood 7.5 mg/dL (8.5-10.1); Creatinine, Blood 2.46 mg/dL (0.60-1.20); Globulin, Blood 3.6 g/dL (2.2-4.0); Phosphorus, Blood 3.2 mg/dL (2.5-4.9); Potassium, Blood 3.7 mmol/L (3.5-5.5); Total Protein, Blood 5.6 g/dL (6.4-8.2)
[2023-07-26 05:04] LABS: Base Excess Venous 6.5 mmol/L; Bicarbonate Venous 29.5 mmol/L (24.0-30.0); PCO2 Venous 41.1 mmHg (38-42); PO2 Venous 40.3 mmHg (38-42); pH Blood Venous 7.47 (7.34-7.37)
--- NOTE | 2023-07-26 05:56 | NUR ---
SHIFT SUMMARY DR GURROLA INTO SEE PT. PT CONT INTUBATED AND ON [facility] VENT. PT SEDATED WITH PROPOFOL AND FENTANYL. PT ABLE TO OPEN EYES AND FOLLOW INSTRUCTIONS TO VERBAL STIMULI. HEART RATE IN THE 70'S DURING THE NIGHT. BP STABLE PT MED WITH HYDRALAZINE TWICE DURING THE NIGHT. PT ON DOBUTAMINE, AMIODARONE, AND HEPARIN. BT+ ABD FRIM. OG WITH TUBE FEED VITAL HP AT GOAL RATE 30 ML/HR, WATER 30 ML 4HR. MAI CATH PATENT DRAINING DARK URINE. DISCUSSED OUTPUT WITH DR GURROLA. DR GURROLA WILL TALK WITH DR DUTTA REGARDING DIALYSIS TODAY. PT TO RECEIVE LISINOPRIL 7.5 THIS MORNING AND REPEAT SVO2 AT 0800. REPORT TO ON COMING NURSE
--- NOTE | 2023-07-26 08:33 | NUR ---
ASSUMED CARE CARE WAS ASSUMED OF PT AT 0700, REPORT GIVEN BY ANTONELLA WILLIAM. PT INTUBATED AND SEDATED. PROPOFOL GTT INFUSING AND FENTANYL SEDATION ADJUNCT, SEE FLOWSHEET. PT RESPONSIVE TO VERBAL STIMULI, ABLE TO FOLLOW COMMANDS AND ARMORED TRANSPORT SERVICE MANAGER WITH BOTH HANDS. PT UNABLE TO MOVE FEET WHEN ASKED TO. PT SHAKES HEAD NO WHEN ASKED IF IN PAIN. PT REMAINS IN SOFT BILATERAL WRIST RESTRAINTS FOR SAFETY. VENT SETTINGS AC/VC 18/500/5/30%. O2 SATS > 95%. CARDIAC MONITORING REFLECTS NSR WITH RBB. SBP 120s AT THIS TIME. PT MEDICATED PER EMAR WITH HYDRALAZINE THIS MORNING FOR SBP IN 160s. GOAL IS FOR PT HAVE SBP < 140. HR 70s AT THIS TIME. DOBUTAMINE, HEPARIN AND AMIODARONE GTT INFUSING, SEE FLOWSHEET. TF INFUSING THROUGH OG AT GOAL OF 30 ML/HR, TOLERATING WELL. TEMP MAI PATENT AND DRAINING TO GRAVITY. TEMP AT THIS TIME 100.2, SHEET TAKEN OFF PT WITH FAN BLOWING TOWARDS HIM. GTTs INFUSING THROUGH RIJ. DIALYSIS CATH IN PLACE AT LEFT GROIN SITE.
[2023-07-26 08:55] LABS: Base Excess Venous 6.7 mmol/L; Bicarbonate Venous 29.6 mmol/L (24.0-30.0); PCO2 Venous 41.2 mmHg (38-42); PO2 Venous 40.2 mmHg (38-42); pH Blood Venous 7.48 (7.34-7.37)
[2023-07-26 15:10] LABS: Base Excess Venous 4.1 mmol/L; Bicarbonate Venous 27.2 mmol/L (24.0-30.0); PCO2 Venous 44.3 mmHg (38-42); PO2 Venous 41.8 mmHg (38-42); pH Blood Venous 7.42 (7.34-7.37)
--- NOTE | 2023-07-26 15:49 | NUR ---
EXTUBATION PROPOFOL PT ON SB AT 1425. PT FOLLOWING COMMANDS, ABLE TO NOD HEAD FOR YES AND NO QUESTIONS. PT SHAKES HEAD NO WHEN ASKED IF IN PAIN. PT ABLE TO MERCHANDISING SPECIALIST WITH BOTH HANDS AND MOVE LEFT FOOT WHEN ASKED TO BY DR. RICHMOND. PT PUT ON SPONT. VENT SETTINGS AT [address] RICHMOND. PS 7, PEEP 5, FiO2 30%. PT TOLERATING WELL, O2 SATS > 95%. TIDAL VOLUMES 350s-450s. TF ON STANBY AT 1445. PT EXTUBATED AT 1545 AND PUT ON 2 L N/C. PT TOLERATING WELL, O2 SATS > 95%.
[2023-07-26 16:41] LABS: Base Excess Venous 4.5 mmol/L; Bicarbonate Venous 26.7 mmol/L (24.0-30.0); PCO2 Venous 51.7 mmHg (38-42); pH Blood Venous 7.37 (7.34-7.37)
[2023-07-26 16:45] LABS: PO2 Venous 32.5 mmHg (38-42)
--- NOTE | 2023-07-26 17:20 | NUR ---
SHIFT SUMMARY PT EXTUBATED THIS SHIFT, SEE NURSE NOTE. PT IS ABLE TO FOLLOW COMMANDS AND ANSWER QUESTIONS BY NODDING HEAD TO YES AND NO QUESTIONS. PT RELUCTANT TO SPEAK AT THIS TIME D/T SORENESS AFTER EXTUBATION. BEDSIDE SWALLOW EXAM NOT COMPLETE AT THIS TIME. PT DENIES PAIN AT THIS TIME. AFTER EXTUBATION PT TRANSITIONED TO 2 L N/C AND TOLERATING WELL, O2 SATS > 95%. PT IS HAVING OCCASIONAL SEMI-PRODUCTIVE COUGH, PT'S ASSISTING PATIENT WITH ORAL SUCTIONING. CARDIAC MONITORING REFLECTS NSR WITH PROLONGED QT. DR. GURROLA AWARE. HR 90s. SBP 160s, MEDICATING PT PER EMAR WITH HYDRALAZINE FOR SBP GOAL OF < 140. DOBUTAMINE, HEPARIN, AND AMIODARONE GTT INFUSING THROUGH RIJ, SEE FLOWSHEET. SvO2 MEASURED DURING SHIFT, REPORTED VALUES TO DR. GURROLA. MAI PATENT AND DRAINING TERRI URINE.
--- NOTE | 2023-07-26 17:49 | NUR ---
RUN OF VTACH PT HAD RUN 13 BEAT RUN OF VTACH AT 1736, RHYTHM SAVED TO CHART AND PRINTED OUT. EKG OBTAINED. DR. GURROLA AWARE, PLANS TO SEE PATIENT TONIGHT. PT ASYMPTOMATIC AT TIME OF VTACH.
[2023-07-26 18:18] LABS: Base Excess Venous 4.2 mmol/L; Bicarbonate Venous 27.1 mmol/L (24.0-30.0); PCO2 Venous 45.9 mmHg (38-42); pH Blood Venous 7.41 (7.34-7.37)
[2023-07-26 18:19] LABS: PO2 Venous 43.3 mmHg (38-42)
[2023-07-26 20:13] LABS: Base Excess Venous 4.7 mmol/L; Bicarbonate Venous 27.5 mmol/L (24.0-30.0); PCO2 Venous 47.6 mmHg (38-42)
[2023-07-26 20:15] LABS: PO2 Venous 41.1 mmHg (38-42)
[2023-07-26 21:48] LABS: pH Blood Venous 7.41 (7.34-7.37)
[2023-07-26 21:49] LABS: Base Excess Venous 4.6 mmol/L; Bicarbonate Venous 27.6 mmol/L (24.0-30.0); PCO2 Venous 45.7 mmHg (38-42); PO2 Venous 43.7 mmHg (38-42)
--- NOTE | 2023-07-26 21:56 | NUR ---
ASSUMPTION OF CARE BEDSIDE SHIFT REPORT RECEIVED FROM DAY SHIFT RN. PT RESTING IN BED, ALERT AND ORIENTED. PT ABLE TO FOLLOW COMMANDS, ANSWERS QUESTIONS APPROPIATELY AND IS ABLE TO MAKE NEEDS KNOWN. HR 90-100'S SINUS, SBP 140-160'S MEDICATED PER EMAR. PT DENIES CP OR SOB. PT ON NC AT 2LPM VIA NC, OXYGEN SATURATION >95%. MAI PATENT DRAINING TO GRAVITY. CENTRAL LINE IN APLCE TO RIJ, INFUISNG HEPARIN AT 17UNITS/KG/HR, AMIO INFUSING AT 0.5MG/HR AND DOBUTAMINE INFUSING AT 2.5MCG/KG/MIN ON ASSESSMENT, TITRATED DOWN TO 1MCG/KG/MIN PER Roseline GURROLA. BED IN LOWEST POSITION, CALL LIGHT WITHIN REACH. PT AT THE BEDSIDE. CARE CONTINUES.
[2023-07-27] VITALS (86 sets, daily range): BP systolic 124–183; BP diastolic 55–134
[2023-07-27 04:37] LABS: Base Excess Venous 4.4 mmol/L; Bicarbonate Venous 27.4 mmol/L (24.0-30.0)
[2023-07-27 04:38] LABS: PO2 Venous 44.7 mmHg (38-42)
[2023-07-27 04:45] LABS: BASOPHILS ABSOLUTE AUTO 0.02 K/mm3 (0.00-0.23); BASOPHILS PERCENT AUTO 0 % (0-2); EOSINOPHILS ABSOLUTE AUTO 0.08 K/mm3 (0.00-0.68); EOSINOPHILS PERCENT AUTO 1 % (0-6); Hemoglobin 10.5 g/dL (13.5-17.5); IMMATURE GRAN ABSOLUTE AUTO 0.08 K/mm3 (0.00-0.10); IMMATURE GRAN PERCENT AUTO 1 % (0-1); LYMPHOCYTES ABSOLUTE AUTO 1.03 K/mm3 (0.84-5.20); LYMPHOCYTES PERCENT AUTO 13 % (21-46); MONOCYTES ABSOLUTE AUTO 0.87 K/mm3 (0.16-1.47); MONOCYTES PERCENT AUTO 11 % (4-13); Mean Corpuscular HGB 25.2 pg (26.0-34.0); Mean Corpuscular HGB Conc 30.9 g/dL (31.5-36.5); Mean Corpuscular Volume 82 fL (80-100); Mean Platelet Volume 9.8 fL (9.1-12.4); NEUTROPHILS ABSOLUTE AUTO 5.99 K/mm3 (1.96-9.15); NEUTROPHILS PERCENT AUTO 74 % (41-73); Platelet Count 203 K/mm3 (150-400); RDW Coefficient Variation 16.3 % (11.7-14.2); RDW Standard Deviation 48.4 fL (35.1-46.3); Red Blood Cell Count 4.16 M/mm3 (4.30-5.90); White Blood Cell Count 8.07 K/mm3 (4.00-11.30)
[2023-07-27 05:08] LABS: Anti-Xa UFH, PHA Monitoring 0.55 IU/mL; International Normalized Ratio 1.95; Prothrombin Time Results 19.7 Sec (9.7-11.5)
[2023-07-27 05:16] LABS: Magnesium, Blood 2.2 mg/dL (1.6-2.4)
[2023-07-27 05:19] LABS: Alanine Aminotransfer (ALT/SGP 1732 U/L (12-78); Albumin, Blood 2.3 g/dL (3.4-5.0); Anion Gap 6 mmol/L (6-16); Aspartate Aminotrans (AST/SGOT 402 U/L (12-37); Blood Urea Nitrogen 37 mg/dL (8-24); Bun/Creatinine Ratio 18.1 (12.0-20.0); CO2, Blood 29 mmol/L (21-32); Calcium, Blood 7.7 mg/dL (8.5-10.1); Chloride, Blood 99 mmol/L (98-108); Creatinine, Blood 2.04 mg/dL (0.60-1.20); Glomerular Filtration Rate 37 (60-); Glucose, Blood 257 mg/dL (70-99); Phosphorus, Blood 3.7 mg/dL (2.5-4.9); Potassium, Blood 4.1 mmol/L (3.5-5.5); Sodium, Blood 134 mmol/L (136-145)
--- NOTE | 2023-07-27 06:03 | NUR ---
SHIFT SUMMARY PT RESTING IN BED. SLEEPING BUT AROUSABLE. PT ANSWERS QUESTIONS APPROPRIATELY, FOLLOWS COMMANDS, AND IS ABLE TO MAKE NEEDS KNOWN, MOVES ALL EXTREMITIES EQUALLY BILATERALLY. PT DENIES CP OR SOB. HR 80-100'S SINUS, SBP 140-170'S, MEDICATED PER EMAR WITH HYDRALAZINE. PT ON 2LPM VIA NC, OXYGEN SATURATION >95%. MAI PATENT DRAINING TERRI URINE TO GRAVITY. CENTRAL LINE TO RIJ INFUSING AMIODARONE AT 0.5MG/HR, HEPARIN INFUSING AT 17UNITS/KG/HR, DOBUTAMINE ON SB PER DR. GURROLA ORDERS. TRIALYSIS CATH TO LEFT FEM PATENT, NO SIGNS OF LEAKING OR HEMATOMA, PT DENIES PAIN. BED IN LOWEST POSITION, CALL LIGHT WITHIN REACH. AT THE BEDSIDE. CARE CONTINUES.
[2023-07-27 07:43] LABS: Base Excess Venous 4.8 mmol/L; Bicarbonate Venous 27.6 mmol/L (24.0-30.0); PCO2 Venous 48.2 mmHg (38-42)
[2023-07-27 07:44] LABS: PO2 Venous 41.4 mmHg (38-42)
--- NOTE | 2023-07-27 18:42 | NUR ---
Summary. Pt rested in bed throughout shift. A&O, no acute needs. Amiodarone changed to PO this afternoon. R/IJ central line remains in place, dialysis catheter L/fem in place. Heparin GTT infusing at 17 units/kg/hr. Mayen catheter in place, draining to gravity. See chart for further details. Will report off to nightshift RN.
--- NOTE | 2023-07-27 21:21 | NUR ---
ASSUMPTION OF CARE BEDSIDE SHIFT REPORT RECEIVED FROM DAY SHIFT RN. PT RESTING IN BED, ALERT AND ORIENTED, PT ABLE TO FOLLOW COMMANDS, ANSWERS QUESTIONS APPROPRIATELY AND IS ABLE TO MAKE NEEDS KNOWN. PT VERY WEAK. HR 70'S NSR, SBP 140-160'S, MEDICATED PER EMAR. PT ON 2LPM VIA NC, OXYGEN SATURATION >95%. PT DENIES CP OR SOB. PT ABLE TO SWALLOW PILLS IN APPLESAUCE. TEMP MAI IN PLACE PATENT DRAINING TERRI COLORED URINE TO GRAVITY. CENTRAL LINE IN PLACE TO RIJ INFUSING HEPARIN AT 17UNITS/KG/HR. TRIALYSIS CATH IN PLACE TO LEFT FEM, PATENT, NO LEAKING OR HEMATOMA FORMATION NOTED. BED IN LOWEST POSITION, CALL LIGHT WITHIN REACH. AT THE BEDSIDE. CARE CONTINUES.
[2023-07-28] VITALS (88 sets, daily range): BP systolic 107–195; BP diastolic 57–131
[2023-07-28 05:22] LABS: Anti-Xa UFH, PHA Monitoring 0.45 IU/mL; International Normalized Ratio 1.57; Prothrombin Time Results 16.1 Sec (9.7-11.5)
--- NOTE | 2023-07-28 05:25 | NUR ---
SHIFT SUMMARY PT RESTING IN BED, SLEEPING BUT AROUSABLE. PT ASNWERS QUESTIONS APPROPRIATELY, FOLLOWS COMMANDS AND IS ABLE TO MAKE NEEDS KNOWN. PT MOVES ALL EXTREMITIES EQUALLY BILATERALLY, PT IS VERY WEAK. HR 90'S SINUS, SBP 140-190'S, MEDICATED PER EMAR. PT DENIES CP OR SOB. PT ON 2LPM VIA NC, OXYGEN SATURATION >95%. PT ABLE TO TOLERATE THICKENED LIQUIDS, AND MEDICATIONS WITH APPLESAUCE. TEMP MAI PATENT DRAINING TO GRAVITY. CENTRAL LINE TO RIJ INFUSING HEPARIN AT 17UNITS/KG/HR. TRIALYSIS CATH TO LEFT FEM, PATENT, NO LEAKING OR HEMATOMA FORMATION NOTED. BED IN LOWEST POSIITON, CALL LIGHT WITHIN REACH. AT THE BEDSIDE. CARE CONTINUES.
[2023-07-28 06:20] LABS: Albumin, Blood 2.4 g/dL (3.4-5.0); Albumin/Globulin Ratio 0.5 (0.8-1.8); Bilirubin, Total 2.7 mg/dL (0.1-1.0); Calcium, Blood 7.9 mg/dL (8.5-10.1); Creatinine, Blood 1.95 mg/dL (0.60-1.20); Globulin, Blood 4.4 g/dL (2.2-4.0); Phosphorus, Blood 3.2 mg/dL (2.5-4.9); Potassium, Blood 4.2 mmol/L (3.5-5.5); Total Protein, Blood 6.8 g/dL (6.4-8.2)
--- NOTE | 2023-07-28 15:38 | NUR ---
Dialysis catheter removed at 1450, manual pressure held for 15 minutes. Site covered with occlusive dressing, C/D/I, no bleeding noted.
--- NOTE | 2023-07-28 18:17 | NUR ---
Shift summary. Pt rested in bed this shift. On 02 via NC at 2 L/min. Medications adjusted today, see orders. Pt less hypertensive and HR slower. R/IJ central line in place, Heparin infusing at 17 units/kg/hr. L/fem dialysis catheter removed, see note. Site C/D/I, no bleeding. No acute events this shift, see chart for further details. Will report off to nightshift RN.
--- NOTE | 2023-07-28 20:36 | NUR ---
ASSUMPTION OF CARE PT RESTING IN BED, ALERT AND ORIENTED. PT COMMUNICATES APPROPRIATELY, FOLOWS COMMANDS, AND IS ABLE TO MAKE NEEDS KNOWN. PT MOVES ALL EXTREMITIES EQUALLY BILATERALLY. HR 60'S NSR, SBP 110'S-140'S. PT ON 2LPM VIA NC, PXYGEN SATURATION >95%. PT DENIES CP OR SOB. CENTRAL LINE TO RIJ INFUSING HEPARIN AT 17UNITS/KG/HR. TEMP MAI PATENT DRAINING TERRI COLORED URINE TO GRAVITY. LEFT FEMORAL SITE WHERE TRIALYSIS CATH WAS REMOVED WNL, NO HEMATOMA FORMATION NOTED. CLEAR DRESSING IN PLACE. BED IN LOWEST POSITION, CALL LIGHT WITHIN REACH. AT THE BEDSIDE, CARE CONTINUES.
[2023-07-29] VITALS (68 sets, daily range): BP systolic 87–193; BP diastolic 58–151
[2023-07-29 03:54] LABS: BASOPHILS ABSOLUTE AUTO 0.04 K/mm3 (0.00-0.23); BASOPHILS PERCENT AUTO 1 % (0-2); EOSINOPHILS ABSOLUTE AUTO 0.28 K/mm3 (0.00-0.68); EOSINOPHILS PERCENT AUTO 4 % (0-6); Hematocrit 34.4 % (37.0-53.0); Hemoglobin 10.5 g/dL (13.5-17.5); IMMATURE GRAN ABSOLUTE AUTO 0.09 K/mm3 (0.00-0.10); IMMATURE GRAN PERCENT AUTO 1 % (0-1); LYMPHOCYTES ABSOLUTE AUTO 1.64 K/mm3 (0.84-5.20); LYMPHOCYTES PERCENT AUTO 23 % (21-46); MONOCYTES ABSOLUTE AUTO 0.92 K/mm3 (0.16-1.47); MONOCYTES PERCENT AUTO 13 % (4-13); Mean Corpuscular HGB 25.2 pg (26.0-34.0); Mean Corpuscular HGB Conc 30.5 g/dL (31.5-36.5); Mean Corpuscular Volume 83 fL (80-100); Mean Platelet Volume 9.2 fL (9.1-12.4); NEUTROPHILS ABSOLUTE AUTO 4.33 K/mm3 (1.96-9.15); NEUTROPHILS PERCENT AUTO 59 % (41-73); Platelet Count 202 K/mm3 (150-400); RDW Coefficient Variation 16.2 % (11.7-14.2); RDW Standard Deviation 48.5 fL (35.1-46.3); Red Blood Cell Count 4.16 M/mm3 (4.30-5.90)
[2023-07-29 04:08] LABS: Anti-Xa UFH, PHA Monitoring 0.43 IU/mL; International Normalized Ratio 1.51; Prothrombin Time Results 15.5 Sec (9.7-11.5)
[2023-07-29 04:15] LABS: Albumin, Blood 2.4 g/dL (3.4-5.0); Albumin/Globulin Ratio 0.6 (0.8-1.8); Bilirubin, Total 2.2 mg/dL (0.1-1.0); Bun/Creatinine Ratio 23.4 (12.0-20.0); Creatinine, Blood 1.92 mg/dL (0.60-1.20); Globulin, Blood 4.2 g/dL (2.2-4.0); Magnesium, Blood 1.8 mg/dL (1.6-2.4); Phosphorus, Blood 3.1 mg/dL (2.5-4.9); Potassium, Blood 4.1 mmol/L (3.5-5.5); Total Protein, Blood 6.6 g/dL (6.4-8.2)
--- NOTE | 2023-07-29 05:25 | NUR ---
SHIFT SUMMARY PT CONTINUES TO REST IN BED, SLEEPING BUT AROUSABLE. PT COMMUNICATES APPROPRIATELY, ABLE TO MAKE NEEDS KNOWN. PT MOVES ALL EXTREMITIES EQUALLY BILATERALLY, PT APPEARS STRONGER THAN YESTERDAY. HR 60-70'S SINUS, SBP 140-190'S, MEDICATED PER EMAR. PT ON NC AT 2LPM, OXYGEN SATURATION >95%. TEMP MAI PATENT DRAINING TO GRAVITY. CENTRAL LINE IN PLACE TO [facility] INFUSING HEPARIN AT 17UNITS/KG/HR. LEFT GROIN SITE WHERE TRIALYSIS CATH WAS PREVIOUSLY IS WNL, NO OOZING OR HEMATOMA FORMATION NOTED. CLEAR DRESSING IN PLACE. BED IN LOWEST POSITION, CALL LIGHT WITHIN REACH. AT THE BEDSDIE. CARE CONTINUES.
--- NOTE | 2023-07-29 19:14 | NUR ---
Shift summary. Pt resting in bed, alert and oriented. Report given to nightshift RN. See chart for further details.
--- NOTE | 2023-07-29 19:54 | NUR ---
ASSUMED CARE PT IS A&O; SPO2 >92% ON 2LNC; MAP >65; HR AFIB IN THE 120-130'S. 500NS @ 250ML/HR INFUSING AT TIME OF THIS NOTE; WILL CALL DR GOODWIN W/ UPDATE ON VITALS AFTER BOLUS IS FINISHED INFUSING. IS AT BEDSIDE.
--- NOTE | 2023-07-29 21:08 | NUR ---
UPDATE DR GOODWIN CALLED PER ORDER W/ UPDATE ON PT VITALS. NO NEW ORDERS AT THIS TIME; TREAT HTN PER EMAR.
--- NOTE | 2023-07-29 23:03 | NUR ---
UPDATE DR GOODWIN CALLED D/T PT'S CONTINUED HTN. ORDERS PLACED W/ OK TO DEFER TO HOSPITALIST FOR FURTHER ISSUES W/ HTN. RATE 130~'S OK PER DR GOODWIN.
[2023-07-30] VITALS (35 sets, daily range): BP systolic 114–187; BP diastolic 58–115
[2023-07-30 03:35] LABS: Hematocrit 35.4 % (37.0-53.0); Hemoglobin 10.9 g/dL (13.5-17.5); Platelet Count 199 K/mm3 (150-400)
[2023-07-30 03:51] LABS: Albumin, Blood 2.4 g/dL (3.4-5.0); Anion Gap 5 mmol/L (6-16); Blood Urea Nitrogen 39 mg/dL (8-24); Bun/Creatinine Ratio 24.5 (12.0-20.0); CO2, Blood 30 mmol/L (21-32); Calcium, Blood 7.9 mg/dL (8.5-10.1); Chloride, Blood 105 mmol/L (98-108); Creatinine, Blood 1.59 mg/dL (0.60-1.20); Glomerular Filtration Rate 50 (60-); Glucose, Blood 220 mg/dL (70-99); Phosphorus, Blood 3.1 mg/dL (2.5-4.9); Potassium, Blood 4.1 mmol/L (3.5-5.5); Sodium, Blood 140 mmol/L (136-145)
--- NOTE | 2023-07-30 05:10 | NUR ---
UPDATE DR CHAPPELL NOTIFIED ABOUT PT'S CONTINUED HTN. STATED HE WILL LOOK INTO CHART AND PUT IN ORDERS FOR PRN HTN
--- NOTE | 2023-07-30 06:33 | NUR ---
SHIFT SUMMARY PT RESTED QUIETLY W/ T/O NIGHT. CONTINUES TO BE A&O X4. PT MOVES ALL EXTREMITIES WELL. HR CONTINUES TO SUSTAIN IN THE 120-130'S W/ INTERMITTENT ELEVATIONS INTO THE 140-LOW 150'S. PT CONTINUES TO DENY CP, SOB, NAUSEA, DIZZINESS, AND LIGHTHEADEDNESS. MAP >65 W/ SBP >140'S (TREATING PER EMAR). SPO2 >92% ON 2LNC. MAI PATENT AND DRAINING TO GRAVITY. NO OTHER ACUTE EVENTS THIS EVENING. FEMORAL AND IJ SITE REMAINS UNCHANGED.
--- NOTE | 2023-07-30 06:54 | NUR ---
UPDATE DR GOODWIN CALLED D/T PT'S HR TRENDING UPWARDS. ORDERS TO BE PUT IN.
--- NOTE | 2023-07-30 09:00 | NUR ---
ASSUMED CARE / DR GOODWIN: REPORT RECEIVED FROM WANDER Mcdowell RN. ASSUMED CARE OF THIS PT AT APPROX 0700. ON ASSESSMENT, THE PT IS AWAKE, A&O TO ALL. HE SILVA BUT STS FEELING GENERALLY WEAK, ALTHOUGH IMPROVING. HE STS FEELING SOMEWHAT FORGETFUL REGARDING CIRCUMSTANCES PRIOR TO ADMISSION BUT IS BEGINNING TO REMEMBER MORE. LS CLEAR, DIM IN BASES. PT ON RA W/ O2 SATS > 92%. MONITOR SHOWS AFIB W/ HR 120-140s, HYPERTENSIVE W/ SCHEDULED AM MEDS PER EMAR. PT HAS NO GI COMPLAINTS CURRENTLY, IS TOLERATING PO INTAKE WELL. STS NO BM SINCE ADMISSION, FEELS NO URGE TO HAVE BM AT THIS TIME. TEMP MAI PATENT/ DRAINING DARK YELLOW URINE - IN PLACE FOR STRICT I&O MONITORING. SKIN CONDITION OVERALL INTACT, Q2H REPOSITIONING TO MAINTAIN SKIN INTEGRITY. PUNCTURE SITES S/P CENTRAL LINE REMOVAL TO LEFT GROIN & RIGHT IJ ARE WNL; TEGADERM DRESSING IN PLACE W/ SMALL AMNT DRIED SANGUINOUS DRAINAGE NOTED UNDER DRESSING, SURROUNDING TISSUE IS SOFT & NONTENDER TO PALPATION. DR GOODWIN AT BEDSIDE THIS AM TO EVAL PT. WILL DISCONTINUE CARVEDILOL & LASIX; ENTRESTO, METOPROLOL & TORSEMIDE HAVE NOW BEEN ORDERED TO START TODAY. NO OTHER CHANGES AT THIS TIME. WILL CONTINUE TO MONITOR & UPDATE NEEDED.
[2023-07-30 13:50] LABS: Source, Urine Clean Catch
[2023-07-30 13:59] LABS: Appearance, Urine Clear (Clear); Bilirubin, Urine Neg (Neg); Blood, Urine 5+ (Neg); Color, Urine Yellow (P-Yellow); Glucose Qualitative, Urine Neg (Neg); Ketones, Urine Neg (Neg); Leukocyte Esterase, Urine 2+ (Neg); Nitrite, Urine Neg (Neg); Protein, Urine 2+ (Neg); Specific Gravity, Urine 1.015 (1.003-1.022); Urobilinogen, Urine 1+ (Normal)
[2023-07-30 14:13] LABS: Bacteria Few /hpf; Red Blood Cells, Urine 25-50 /hpf (0-2); Squamous Epithelial Cells Not Seen /hpf (Few)
--- NOTE | 2023-07-30 14:45 | NUR ---
TRANSFER TO PCU: REPORT HAS BEEN GIVEN TO MARY Quarles RN TO ASSUME CARE. THE PT, CHART & ALL BELONGINGS HAVE BEEN TRANSFERRED TO PCU-07 VIA BED AT APPROX 1445. THE PT's , FRANCISCA, IS AT BEDSIDE DURING THIS TIME & DENIES QUESTIONS REGARDING TX.
--- NOTE | 2023-07-30 17:34 | NUR ---
SHIFT SUMMARY; ICU TRANSFER TO PCU 7 IN AFTERNOON. SLID FROM ICU BED TO PCU BED. A/A/OX4, MOVING ALL 4 EXTREMETIES, VSS. 2 PERSON ASSIST WITH GAIT BELT TO BSC, TOLERATED WELL, LARGE BM. INSULIN COVERAGE PER EMAR. AFIB IN 120S DURING SHIFT. SPOUSE AT BEDSIDE, WILL CONTINUE TO MONITOR AND TREAT UNTIL CHANGE OF SHIFT.
[2023-07-31] VITALS (7 sets, daily range): BP systolic 116–158; BP diastolic 72–101
--- NOTE | 2023-07-31 04:10 | NUR ---
SHIFT SUMMARY PT RESTED WELL T/O SHIFT. DENIES CP/PRESSURE/SOB. TELE REMAINS ST IN THE 120S. PT HAS BEEN HYPERTENSIVE ALL NIGHT. PRN HYDRALAZINE AND LOPRESSOR PER EMAR. HEPARIN GTT INFUSING PER ORDERS. UP WITH 1 ASSIST TO DANGLE AT BEDSIDE TO USE THE URINAL TO VOID. REPOSITIONS SELF IN BED INDEPENDENTLY. USES CALL LIGHT APPROPRIATELY.
[2023-07-31 05:02] LABS: BASOPHILS ABSOLUTE AUTO 0.03 K/mm3 (0.00-0.23); BASOPHILS PERCENT AUTO 1 % (0-2); EOSINOPHILS ABSOLUTE AUTO 0.22 K/mm3 (0.00-0.68); EOSINOPHILS PERCENT AUTO 3 % (0-6); Hematocrit 34.7 % (37.0-53.0); Hemoglobin 10.8 g/dL (13.5-17.5); IMMATURE GRAN ABSOLUTE AUTO 0.07 K/mm3 (0.00-0.10); IMMATURE GRAN PERCENT AUTO 1 % (0-1); LYMPHOCYTES ABSOLUTE AUTO 1.79 K/mm3 (0.84-5.20); LYMPHOCYTES PERCENT AUTO 28 % (21-46); MONOCYTES ABSOLUTE AUTO 0.71 K/mm3 (0.16-1.47); MONOCYTES PERCENT AUTO 11 % (4-13); Mean Corpuscular HGB 25.3 pg (26.0-34.0); Mean Corpuscular HGB Conc 31.1 g/dL (31.5-36.5); Mean Corpuscular Volume 81 fL (80-100); Mean Platelet Volume 10.1 fL (9.1-12.4); NEUTROPHILS ABSOLUTE AUTO 3.56 K/mm3 (1.96-9.15); NEUTROPHILS PERCENT AUTO 56 % (41-73); Platelet Count 238 K/mm3 (150-400); RDW Coefficient Variation 16.3 % (11.7-14.2); RDW Standard Deviation 47.5 fL (35.1-46.3); Red Blood Cell Count 4.27 M/mm3 (4.30-5.90); White Blood Cell Count 6.38 K/mm3 (4.00-11.30)
[2023-07-31 05:32] LABS: Albumin, Blood 2.4 g/dL (3.4-5.0); Albumin/Globulin Ratio 0.5 (0.8-1.8); Bilirubin, Total 1.3 mg/dL (0.1-1.0); Bun/Creatinine Ratio 25.4 (12.0-20.0); Calcium, Blood 8.1 mg/dL (8.5-10.1); Creatinine, Blood 1.38 mg/dL (0.60-1.20); Globulin, Blood 4.4 g/dL (2.2-4.0); Magnesium, Blood 1.5 mg/dL (1.6-2.4); Phosphorus, Blood 2.3 mg/dL (2.5-4.9); Potassium, Blood 3.9 mmol/L (3.5-5.5); Total Protein, Blood 6.8 g/dL (6.4-8.2)
--- NOTE | 2023-07-31 18:23 | NUR ---
END OF SHIFT PT A&O X4. SPEECH SOFT/HOARSE. VSS. SPO2 > 92% ON RA. MONITOR SHOWING AFLUTTER, HR 120s-130s. PT DENYING PAIN/DISCOMFORT. PT/OT/ST WORKING W/ PT TODAY. PT RESTING MAJORITY OF DAY, BUT AMBULATING TO CHAIR &/OR BATHROOM W/ 1 PERSON ASSIST W/ FWW. ECHO DONE AT BEDSIDE THIS SHIFT. HEPARIN GTT INFUSING PER ORDERS. PT NPO AFTER MIDNIGHT FOR POSSIBLE CARDIOVERSION IN AM.
[2023-08-01] VITALS (41 sets, daily range): BP systolic 108–181; BP diastolic 64–100
[2023-08-01 04:11] LABS: BASOPHILS ABSOLUTE AUTO 0.04 K/mm3 (0.00-0.23); BASOPHILS PERCENT AUTO 1 % (0-2); EOSINOPHILS ABSOLUTE AUTO 0.28 K/mm3 (0.00-0.68); EOSINOPHILS PERCENT AUTO 4 % (0-6); Hematocrit 34.8 % (37.0-53.0); Hemoglobin 10.9 g/dL (13.5-17.5); IMMATURE GRAN ABSOLUTE AUTO 0.09 K/mm3 (0.00-0.10); IMMATURE GRAN PERCENT AUTO 1 % (0-1); LYMPHOCYTES ABSOLUTE AUTO 2.34 K/mm3 (0.84-5.20); LYMPHOCYTES PERCENT AUTO 31 % (21-46); MONOCYTES ABSOLUTE AUTO 0.73 K/mm3 (0.16-1.47); MONOCYTES PERCENT AUTO 10 % (4-13); Mean Corpuscular HGB 25.5 pg (26.0-34.0); Mean Corpuscular HGB Conc 31.3 g/dL (31.5-36.5); Mean Corpuscular Volume 81 fL (80-100); Mean Platelet Volume 9.5 fL (9.1-12.4); NEUTROPHILS ABSOLUTE AUTO 4.05 K/mm3 (1.96-9.15); NEUTROPHILS PERCENT AUTO 54 % (41-73); Platelet Count 264 K/mm3 (150-400); RDW Coefficient Variation 16.5 % (11.7-14.2); RDW Standard Deviation 47.8 fL (35.1-46.3); Red Blood Cell Count 4.28 M/mm3 (4.30-5.90); White Blood Cell Count 7.53 K/mm3 (4.00-11.30)
[2023-08-01 04:30] LABS: Albumin, Blood 2.5 g/dL (3.4-5.0); Albumin/Globulin Ratio 0.6 (0.8-1.8); Bilirubin, Total 1.1 mg/dL (0.1-1.0); Bun/Creatinine Ratio 21.5 (12.0-20.0); Creatinine, Blood 1.49 mg/dL (0.60-1.20); Globulin, Blood 4.3 g/dL (2.2-4.0); Magnesium, Blood 1.7 mg/dL (1.6-2.4); Phosphorus, Blood 2.4 mg/dL (2.5-4.9); Potassium, Blood 3.8 mmol/L (3.5-5.5); Total Protein, Blood 6.8 g/dL (6.4-8.2)
--- NOTE | 2023-08-01 04:47 | NUR ---
SHIFT SUMMARY THIS RN ASSUMED CARE OF PATIENT AT 1900. A&O X4. ABLE TO MAKE NEEDS KNOWN. TELE SHOWING AFLUTTER WTIH HR 120-130'S. DENIES CHEST PAIN/PRESSURE OR SOB. BP STABLE. ON RA WITH SPO2 >92%. PT HAS BEEN NPO SINCE MIDNIGHT FOR POSSIBLE CARDIOVERSION TODAY 08/01. SILVA. PPP. USING URINAL INDEPENDENTLY. BED IN LOWEST POSITION AND CALL LIGHT WITHIN REACH. THIS RN WILL REPORT TO ONCOMING DAYSHIFT RN.
--- NOTE | 2023-08-01 09:45 | NUR ---
INITIAL ASSESSMENT PATIENT ARRIVED TO UNIT AT 0930 FROM PCU. PATIENT CALM, PLEASANT, COOPERATIVE. PATIENT ALERT AND ORIENTED X 4, AFEBRILE. NO COMPLAINTS OF PAIN. VOICE SOFT AND HARSH. PATIENT 2 PERSON ASSIST TRANSFER FROM PCU WHEELCHAIR TO ICU BED. PATIENT SATTING 90% AND GREATER ON RA. LUNGS CLEAR THROUGHOUT. HR IN THE 130S. SBP 120S TO 130S. 2+ EDEMA NOTED TO BLES. DATE OF LAST BM DOCUMENTED YESTERDAY. PATIENT ON ADA DIET. PATIENT HAS BEEN NPO SINCE MIDNIGHT FOR CARDIOVERSION PLANNED FOR TODAY. PATIENT USES URINAL INDEPENDENTLY. TOES AMPUTATED ON PATIENT'S R FOOT. COCCYX/ ANUS REDDENED. SCATTERED BRUISES NOTED. OLD ACCESS SITE AT R CAROTID AND L GROIN. HEALING INCISION TO STERNUM. HEPARIN INFUSING AT 17 UNITS/ KG/ HOUR. AT BEDSIDE. BED LOW, CALL LIGHT IN REACH. CARE CONTINUES.
--- NOTE | 2023-08-01 09:45 | NUR ---
TRANSFER ICU PT A&O X4. VSS. SPO2 > 92% ON RA. MONITOR SHOWING AFLUTTER, HR 130s. PT NPO SINCE MIDNIGHT EXCEPT FOR MEDS. HEPARIN GTT INFUSING PER ORDERS. PT TRANSFERRED TO ICU-8 BY WHEELCHAIR W/ BELONGINGS @ APPROX 0930 FOR CARDIOVERSION. REPORT GIVEN TO ACCEPTING AUDIT INTERN.
--- NOTE | 2023-08-01 12:00 | NUR ---
PATIENT AFEBRILE. HR IN THE 130S. SBP IN THE 140S. BLOOD SUGAR 160; COVERAGE GIVEN. NO OTHER ACUTE CHANGES TO NOTE ON AT THIS TIME. CARE CONTINUES.
--- NOTE | 2023-08-01 18:50 | NUR ---
SHIFT SUMMARY PATIENT TRANSFERRED THIS AM FROM PCU FOR CARDIOVERSION. PATIENT REMAINED ALERT AND ORIENTED X 4, AFEBRILE. PATIENT HAS HAD NO COMPLAINTS OF PAIN. VOICE REMAINS HOARSE AND QUIET. PATIENT REMAINS SATTING 90% AND GREATER ON RA. PATIENT ON A. FLUTTER IN THE 130S WHEN ARRIVED TO UNIT. PATIENT CARDIOVERTED BY DR. DIAMOND AND ANESTHESIA THIS AFTERNOON AND PATIENT APPEARS TO BE IN SR WITH PACS, HR 70S TO 90S. SBP LOW 100S TO 180S. PRN HYDRALAZINE GIVEN FOR HTN. NO BM THIS SHIFT. PATIENT ATE WELL AT DINNER. NO CHANGES TO SKIN NOTED. HEPARIN REMAINED AT 17 UNITS/ KG/ HOUR. AMIO AND COUMADIN ORDERED AND STARTED THIS SHIFT. WENT HOME TO SLEEP. BED LOW, CALL LIGHT IN REACH. NO COMPLAINTS AT THIS TIME. REPORT WILL BE GIVEN TO ASSUMING CORPORATE DIRECTOR TALENT ASSESSMENT NURSE SHORTLY.
--- NOTE | 2023-08-01 19:00 | NUR ---
ASSUMED CARE RECEIVED INTO CARE, PT AWAKE LYING IN BED WATCHING TV.
[2023-08-02] VITALS (22 sets, daily range): BP systolic 136–192; BP diastolic 68–120
[2023-08-02 02:30] LABS: Source, Urine Clean Catch
[2023-08-02 02:37] LABS: Bilirubin, Urine Neg (Neg); Blood, Urine 3+ (Neg); Glucose Qualitative, Urine Neg (Neg); Ketones, Urine Neg (Neg); Leukocyte Esterase, Urine Neg (Neg); Nitrite, Urine Neg (Neg); Protein, Urine 3+ (Neg); Specific Gravity, Urine 1.015 (1.003-1.022); Urobilinogen, Urine 1+ (Normal)
[2023-08-02 03:06] LABS: Appearance, Urine Clear (Clear); Bacteria Few /hpf; Color, Urine Yellow (P-Yellow); Squamous Epithelial Cells Not Seen /hpf (Few); White Blood Cells, Urine 0-2 /hpf (0-5)
[2023-08-02 03:23] LABS: BASOPHILS ABSOLUTE AUTO 0.04 K/mm3 (0.00-0.23); BASOPHILS PERCENT AUTO 1 % (0-2); EOSINOPHILS ABSOLUTE AUTO 0.22 K/mm3 (0.00-0.68); EOSINOPHILS PERCENT AUTO 3 % (0-6); Hematocrit 33.9 % (37.0-53.0); Hemoglobin 10.4 g/dL (13.5-17.5); IMMATURE GRAN ABSOLUTE AUTO 0.05 K/mm3 (0.00-0.10); IMMATURE GRAN PERCENT AUTO 1 % (0-1); LYMPHOCYTES PERCENT AUTO 32 % (21-46); MONOCYTES ABSOLUTE AUTO 0.65 K/mm3 (0.16-1.47); MONOCYTES PERCENT AUTO 9 % (4-13); Mean Corpuscular HGB 25.2 pg (26.0-34.0); Mean Corpuscular HGB Conc 30.7 g/dL (31.5-36.5); Mean Corpuscular Volume 82 fL (80-100); Mean Platelet Volume 9.6 fL (9.1-12.4); NEUTROPHILS PERCENT AUTO 56 % (41-73); Platelet Count 267 K/mm3 (150-400); RDW Coefficient Variation 16.9 % (11.7-14.2); RDW Standard Deviation 49.4 fL (35.1-46.3); Red Blood Cell Count 4.12 M/mm3 (4.30-5.90); White Blood Cell Count 7.56 K/mm3 (4.00-11.30)
[2023-08-02 03:44] LABS: Anti-Xa UFH, PHA Monitoring 0.48 IU/mL; International Normalized Ratio 1.24; Prothrombin Time Results 12.9 Sec (9.7-11.5)
[2023-08-02 03:46] LABS: Albumin, Blood 2.5 g/dL (3.4-5.0); Albumin/Globulin Ratio 0.6 (0.8-1.8); Bilirubin, Total 1.2 mg/dL (0.1-1.0); Bun/Creatinine Ratio 20.6 (12.0-20.0); Calcium, Blood 7.9 mg/dL (8.5-10.1); Creatinine, Blood 1.31 mg/dL (0.60-1.20); Globulin, Blood 4.1 g/dL (2.2-4.0); Magnesium, Blood 1.5 mg/dL (1.6-2.4); Phosphorus, Blood 2.6 mg/dL (2.5-4.9); Potassium, Blood 3.7 mmol/L (3.5-5.5); Total Protein, Blood 6.6 g/dL (6.4-8.2)
--- NOTE | 2023-08-02 04:19 | NUR ---
ORDER OBTAINED FROM DR WAKEFIELD FOR SBP 165-180, SEE EMAR FOR NEW ORDER.
--- NOTE | 2023-08-02 05:38 | NUR ---
MG 1.5, ORDER RECEIVED FROM DR WAKEFIELD TO REPLACE, SEE EMAR. SBP REMAINS 170-180, ORDER RECEIVED FOR LABETALOL, SEE EMAR.
--- NOTE | 2023-08-02 06:29 | NUR ---
[id number] MOST OF NIGHT, HYDRALAZINE X2 GIVEN AND LABETALOL X2 GIVEN WITH LITTLE EFFECT. MAGNESIUM BEING REPLACED. SLEPT WELL THROUGHOUT NIGHT. URINE SAMPLE COLLECTED AND SENT.
--- NOTE | 2023-08-02 18:39 | NUR ---
SUMMARY PT A/O X4. OOB TO CHAIR AND WORKED WITH PT/OT TODAY. HYPERTENSIVE THIS AM. DR. DIAMOND INCREASED BP MEDS. GAVE ONE EXTRA DOSE OF HYDRALAZINE. DENIES CP OR PRESSURE, DENIES SOB. EATING WELL. STILL ON HEPARIN GTT AND STARTED ON COUMADIN TODAY. NO ACUTE CHANGES THIS SHIFT.
--- NOTE | 2023-08-02 20:31 | NUR ---
ASSUMED INTO CARE AT 1915 PT AWAKE AND ALERT LYING IN BED WATCHING TV, INDEP AT BEDISDE WITH URINAL. NO VOICED CONCERNS AT THIS TIME.
[2023-08-03] VITALS (7 sets, daily range): BP systolic 131–193; BP diastolic 73–120
[2023-08-03 03:40] LABS: Anti-Xa UFH, PHA Monitoring 0.44 IU/mL; International Normalized Ratio 1.21; Prothrombin Time Results 12.6 Sec (9.7-11.5)
[2023-08-03 03:45] LABS: Albumin, Blood 2.6 g/dL (3.4-5.0); Anion Gap 5 mmol/L (6-16); Blood Urea Nitrogen 24 mg/dL (8-24); Bun/Creatinine Ratio 16.7 (12.0-20.0); CO2, Blood 32 mmol/L (21-32); Calcium, Blood 8.4 mg/dL (8.5-10.1); Chloride, Blood 102 mmol/L (98-108); Creatinine, Blood 1.44 mg/dL (0.60-1.20); Glomerular Filtration Rate 56 (60-); Glucose, Blood 188 mg/dL (70-99); Magnesium, Blood 1.8 mg/dL (1.6-2.4); Phosphorus, Blood 3.2 mg/dL (2.5-4.9); Potassium, Blood 3.9 mmol/L (3.5-5.5); Sodium, Blood 139 mmol/L (136-145)
--- NOTE | 2023-08-03 06:07 | NUR ---
SLEPT OFF AND ON ALL NIGHT. NO LONGER HAVING CHEST DISCOMOFORT FROM CARDIOVERSION. BP LESS THAN 160 NO PRNS NEEDED. STAYING IN SR W OCCASSIONAL PAC RATE 70-90S.
--- NOTE | 2023-08-03 17:59 | NUR ---
PT HAS BEEN AMBULATING IN ROOM WITH THE ASSITANCE OF STAFF AND SPOUSE. HE IS A/O X4. DENIES CP AND SOB T/O THE DAY. HTN NOTED. HE EXPRESSED DESIRE TO BE HOME BEFORE GEE, HE WAS ABLE TO WORK WITH PHYSICAL THERAPY WELL WITHOUT ISSUES, HE DOES REPORT SOME FATIGUE WITH AMBULATION BUT HE STATES THIS IS LESS FATGIUE THAN BEFORE HE WAS ADMITTED. VSS. NADN. SKIN PWD AND INTACT. HE HAS WOUND TO LT GROIN FROM HEMODIALYSIS, CLOSED SURGICAL WOUND MIDLINE CHEST. WILL START COUMADIN TONIGHT AND CONTINUE HEPARIN INFUSE UNTIL THERAPEAUTIC FOR VALVE REPLACEMENT
--- NOTE | 2023-08-03 18:13 | NUR ---
AWAITING COUMADIN FROM PHARMACY
--- NOTE | 2023-08-03 23:49 | NUR ---
ASSUMPTION OF CARE: BEDSIDE REPORT TAKEN FROM KIYA RN; THIS RN TO ASSUME CARE AT APPROX 1915. PT ALERT, ORIENTED X4. CONVERSANT W/ AND STAFF AT START OF SHIFT. ABLE TO COMMUNICATE NEEDS WITH STAFF. HR 70'S, SINUS ON TELE. BP ELEVATED, EVENING CARDIAC MEDICATIONS ADMINISTERED PER EMAR. SPO2 >95% ON RA. AFEBRILE. PT DENIES PAIN AT START OF SHIFT. STATES "I JUST WANT TO BE HOME FOR HURT." ABLE TO VOID INDEPENDENTLY IN URINAL, CALLS APPROPRIATELY. REPOSITIONS SELF INDEPENDENTLY. HEPARIN GTT INFUSING AT 17 U/KG/HR PER EMAR, RATE BEING MANAGED BY PHARMACY. AWAITING THERAPEUTIC COUMADIN LEVELS D/T VALVE REPLACEMENT. NO OTHER NEEDS AT THIS TIME. CALL LIGHT WITHIN REACH, BED IN LOWEST POSITION.
[2023-08-04] VITALS (12 sets, daily range): BP systolic 133–194; BP diastolic 68–97
--- NOTE | 2023-08-04 01:05 | NUR ---
UPDATE PT'S BP AT START OF SHIFT 193/87. PO AMIO AND METOPROLOL ADMINISTERED PER EMAR SCHEDULED. MID-SHIFT BP 187/96. PRN HYDRALAZINE ADMINISTERED PER EMAR. BP DOWN TO 177/77 APPROX 15 MINS AFTER ADMINISTRATION. PT REMAINS ASYMPTOMATIC AT THIS TIME.
[2023-08-04 05:11] LABS: Anti-Xa UFH, PHA Monitoring 0.42 IU/mL; International Normalized Ratio 1.19; Prothrombin Time Results 12.4 Sec (9.7-11.5)
[2023-08-04 05:22] LABS: Albumin, Blood 2.8 g/dL (3.4-5.0); Anion Gap 5 mmol/L (6-16); Blood Urea Nitrogen 23 mg/dL (8-24); CO2, Blood 33 mmol/L (21-32); Calcium, Blood 8.7 mg/dL (8.5-10.1); Chloride, Blood 100 mmol/L (98-108); Creatinine, Blood 1.35 mg/dL (0.60-1.20); Glomerular Filtration Rate 60 (60-); Glucose, Blood 149 mg/dL (70-99); Phosphorus, Blood 3.4 mg/dL (2.5-4.9); Potassium, Blood 3.8 mmol/L (3.5-5.5); Sodium, Blood 138 mmol/L (136-145)
--- NOTE | 2023-08-04 05:32 | NUR ---
END OF SHIFT NOTE: PT CONTINUED TO EXPERIENCE HTN W/ SBP 170'S; LABETALOL ADMINISTERED PER EMAR. BP IS CURRENTLY 133/68. PT IS RESTING IN BED. NO OTHER CHANGES FOLLOWING ASSUMPTION OF CARE NOTE. HEPARIN GTT CONTINUES TO INFUSE AT 17 U/KG/HR PER PHARMACY ORDERS. NO OTHER NEEDS AT THIS TIME. CALL LIGHT WITHIN REACH, BED IN LOWEST POSITION. WILL REPORT TO ONCOMING RN.
--- NOTE | 2023-08-04 17:39 | NUR ---
PT IS A/O X4. DENIES CP OR SOB. HE REMAINS SBA IN ROOM. HEPARIN CONTINUES TO INFUSE AT 17, THERE HAS BEEN NO CHANGE IN THE RATE TODAY. WE WILL GIVE COUMADIN AND CONTINUE TO MONITOR INR FOR THERAPEUTIC LEVELS. PT IS VERY DRIVIEN FOR DISCHARGE. VSS, HTN HAS NOT REQUIRED COVERAGE DURING THIS SHIFT TODAY. HE HAS A GOOD APPETITE. HE REMAINS IN SR WITH A RATE OF 70 FOR THE DAY. USES CALL LIGHT APPROPRIATELY. OTHERWISE THERE ARE NO ACUTE CHANGES TO NOTE DURING THIS SHIFT.
[2023-08-05] VITALS (11 sets, daily range): BP systolic 117–178; BP diastolic 74–82
--- NOTE | 2023-08-05 00:05 | NUR ---
UPDATE PT'S BP 185/97 AT 2329, UP FROM 177/79 AT 1939. PT ASYMPTOMATIC W/ THIS BP. LABETALOL ADMINISTERED PER EMAR FOR HYPERTENSION. BP AT 0000 IS 129/74. PT IS SLEEPING IN BED AT THIS TIME. OTHER VITALS STABLE AT THIS TIME. CALL LIGHT WITHIN REACH.
[2023-08-05 04:39] LABS: BASOPHILS ABSOLUTE AUTO 0.05 K/mm3 (0.00-0.23); BASOPHILS PERCENT AUTO 1 % (0-2); EOSINOPHILS PERCENT AUTO 2 % (0-6); Hematocrit 34.5 % (37.0-53.0); Hemoglobin 10.7 g/dL (13.5-17.5); IMMATURE GRAN ABSOLUTE AUTO 0.04 K/mm3 (0.00-0.10); IMMATURE GRAN PERCENT AUTO 1 % (0-1); LYMPHOCYTES ABSOLUTE AUTO 2.63 K/mm3 (0.84-5.20); LYMPHOCYTES PERCENT AUTO 32 % (21-46); MONOCYTES ABSOLUTE AUTO 0.66 K/mm3 (0.16-1.47); MONOCYTES PERCENT AUTO 8 % (4-13); Mean Corpuscular HGB 25.7 pg (26.0-34.0); Mean Corpuscular Volume 83 fL (80-100); Mean Platelet Volume 9.7 fL (9.1-12.4); NEUTROPHILS PERCENT AUTO 57 % (41-73); Platelet Count 347 K/mm3 (150-400); RDW Coefficient Variation 17.9 % (11.7-14.2); RDW Standard Deviation 53.1 fL (35.1-46.3); Red Blood Cell Count 4.17 M/mm3 (4.30-5.90); White Blood Cell Count 8.28 K/mm3 (4.00-11.30)
[2023-08-05 04:58] LABS: International Normalized Ratio 1.25
[2023-08-05 05:03] LABS: Albumin, Blood 2.5 g/dL (3.4-5.0); Anion Gap 3 mmol/L (6-16); Blood Urea Nitrogen 25 mg/dL (8-24); Bun/Creatinine Ratio 17.2 (12.0-20.0); CO2, Blood 33 mmol/L (21-32); Calcium, Blood 8.4 mg/dL (8.5-10.1); Chloride, Blood 101 mmol/L (98-108); Creatinine, Blood 1.45 mg/dL (0.60-1.20); Glomerular Filtration Rate 56 (60-); Glucose, Blood 177 mg/dL (70-99); Phosphorus, Blood 3.3 mg/dL (2.5-4.9); Potassium, Blood 3.8 mmol/L (3.5-5.5); Sodium, Blood 137 mmol/L (136-145)
--- NOTE | 2023-08-05 05:18 | NUR ---
END OF SHIFT NOTE: PT REMAINS ALERT, ORIENTED X4. PLEASANT & COOPERATIVE W/ ALL CARE. HR 60-70'S W/ OCCASIONAL INCREASE TO 100'S, SINUS RHYTHM ON TELE. BP ELEVATED T/O THE NIGHT, LABETALOL ADMINISTERED PER EMAR X2. MAP >65. DENIES CHEST PAIN/PRESSURE. SPO2 >90% ON RA. AFEBRILE. NO C/O PAIN THIS SHIFT. REPOSITIONED INDEPENDENTLY T/O SHIFT. ABLE TO USE URINAL INDEPENDENTLY. HEPARIN GTT CONTINUES TO INFUSE AT 17 U/KG/HR PER EMAR; RATE MANAGED BY PHARMACY. NO OTHER EVENTS. CALL LIGHT WITHIN REACH, BED IN LOWEST POSITION. WILL REPORT TO ONCOMING RN.
--- NOTE | 2023-08-05 18:34 | NUR ---
PT REMAINS A/O X4. DENIES CP OR SOB. HE IS SBA WHICH BECAME INDEPENDANT AFTER HEPARIN WAS D/C. VSS, HE DID REQUIRE A DOSE OF LABTELOL TODAY FOR HTN, WHICH RESOLVED WELL, WILL NOTIFY NOC SHIFT. THE PLAN IS TO D/C HEPARIN GTT AND BEGIN LOVENOX INJECTIONS WHICH HE WILL GO HOME WITH, THE ORDER HAS BEEN SENT TO [facility] AND HAS PICKED UP THE LOVENOX INJECTIONS TO PREPARE FOR DC IN THE AM, HE WILL ALSO CONTINUE COUMADIN.
[2023-08-06 00:35] VITALS: BP 188/85
[2023-08-06 01:00] VITALS: BP 178/85
[2023-08-06 01:15] VITALS: BP 121/73
[2023-08-06 01:30] VITALS: BP 170/79
[2023-08-06 03:24] VITALS: BP 142/74
[2023-08-06 03:43] LABS: BASOPHILS ABSOLUTE AUTO 0.04 K/mm3 (0.00-0.23); BASOPHILS PERCENT AUTO 1 % (0-2); EOSINOPHILS ABSOLUTE AUTO 0.11 K/mm3 (0.00-0.68); EOSINOPHILS PERCENT AUTO 2 % (0-6); Hematocrit 36.3 % (37.0-53.0); Hemoglobin 11.1 g/dL (13.5-17.5); IMMATURE GRAN ABSOLUTE AUTO 0.03 K/mm3 (0.00-0.10); IMMATURE GRAN PERCENT AUTO 0 % (0-1); LYMPHOCYTES ABSOLUTE AUTO 2.12 K/mm3 (0.84-5.20); LYMPHOCYTES PERCENT AUTO 29 % (21-46); MONOCYTES ABSOLUTE AUTO 0.63 K/mm3 (0.16-1.47); MONOCYTES PERCENT AUTO 9 % (4-13); Mean Corpuscular HGB 25.4 pg (26.0-34.0); Mean Corpuscular HGB Conc 30.6 g/dL (31.5-36.5); Mean Corpuscular Volume 83 fL (80-100); Mean Platelet Volume 9.6 fL (9.1-12.4); NEUTROPHILS ABSOLUTE AUTO 4.32 K/mm3 (1.96-9.15); NEUTROPHILS PERCENT AUTO 60 % (41-73); Platelet Count 352 K/mm3 (150-400); RDW Coefficient Variation 17.7 % (11.7-14.2); RDW Standard Deviation 53.5 fL (35.1-46.3); Red Blood Cell Count 4.37 M/mm3 (4.30-5.90); White Blood Cell Count 7.25 K/mm3 (4.00-11.30)
[2023-08-06 03:57] LABS: International Normalized Ratio 1.31; Prothrombin Time Results 13.5 Sec (9.7-11.5)
[2023-08-06 04:04] LABS: Bun/Creatinine Ratio 17.2 (12.0-20.0); Calcium, Blood 8.4 mg/dL (8.5-10.1); Creatinine, Blood 1.45 mg/dL (0.60-1.20); Potassium, Blood 4.1 mmol/L (3.5-5.5)
--- NOTE | 2023-08-06 05:29 | NUR ---
END OF SHIFT NOTE: PT REMAINS ALERT, ORIENTED X4. PLEASANT & COOPERATIVE W/ ALL CARE. HR 60-70'S, SINUS RHYTHM ON TELE. BP ELEVATED, LABETALOL ADMINISTERED PER EMAR X1 FOR HTN W/ IMPROVEMENT. MAP >65. DENIES CHEST PAIN/PRESSURE. SPO2 >90% ON RA. AFEBRILE. NO C/O PAIN THIS SHIFT. REPOSITIONED INDEPENDENTLY T/O SHIFT. ABLE TO COMPLETE ADL S INDEPENDENTLY. HEPARIN OFF, LOVENOX ADMINISTERED W/ PM MEDS PER EMAR. PT S REPORTEDLY PICKED UP LOVENOX AT PHARMACY DURING DAY SHIFT, ANTICIPATING THE PT WILL D/C HOME IN THE AM AFTER RECEIVING HIS AM MEDS. NO OTHER EVENTS. CALL LIGHT WITHIN REACH, BED IN LOWEST POSITION. WILL REPORT TO ONCOMING RN.
[2023-08-06 07:51] VITALS: BP 147/82
[2023-08-06] MEDS ORDERED: JARDIANCE10 MG PO (09:35)
[2023-08-06] MEDS ORDERED: ENTRESTO 97 MG1 EACH PO (09:36)
[2023-08-06] MEDS ORDERED: SPIR50 PO (09:36)
[2023-08-06] MEDS ORDERED: PANT40 PO (09:36)
[2023-08-06] MEDS ORDERED: METO100ER PO (09:36)
[2023-08-06] MEDS ORDERED: ENOX120I SC (09:36)
[2023-08-06] MEDS ORDERED: TAMS.4ER PO (09:36)
--- NOTE | 2023-08-06 11:28 | NUR ---
PT DISCHARGED TO HOME WITH DISCHARGE ORDERS, AT THE BEDSIDE UPON DISCHARGE. PT HAD A SHOWER TOLERATED WELL. DISCLOSED NEW MEDICATION AND DISCHARGE INSTRUCTIONS WITH BOTH AND THE PT BOTH VERBALIZED UNDERSTANDING. PT HAD A MORNING DOSE OF LOVENOX SHOT INSTRUCTED TO GET INR LEVELS DAILY AND FF-UP WITH [facility] MACHINE OPERATOR AND PRIMARY CARE PROVIDER. ALL BELONGINGS SENT WITH THE PT ACCOMPANIED VIA WHEELCHAIR FOR TRANSPORT
== END 2023-08-06 09:59 | disposition home or self-care (01) | DRG 308 ==
LOC: ER 02:21 → PCU 04:58 → ICUE 04:58 → PCU 07-30 15:00 → ICUE 08-01 08:43 → PCU 08-01 08:54 → ICUE 08-01 09:02 → PCU 08-03 07:15
PROVIDERS: Emergency Medicine; Family Medicine; Hospitalist; Internal Medicine; Internal Medicine Cardiovascular Disease; Internal Medicine Critical Care Medicine; Student in an Organized Health Care Education/Training Program; ADMIT Internal Medicine
PROC: 5A1955Z Respiratory Ventilation, Greater than 96 Consecutive Hours (ICD-10-PCS; principal; 2023-07-22)
PROC: 0BH17EZ Insertion of Endotracheal Airway into Trachea, Via Natural or Artificial Opening (ICD-10-PCS; 2023-07-22)
PROC: 5A12012 Performance of Cardiac Output, Single, Manual (ICD-10-PCS; 2023-07-22)
PROC: 5A1D70Z Performance of Urinary Filtration, Intermittent, Less than 6 Hours Per Day (ICD-10-PCS; 2023-07-22)
PROC: 02HV33Z Insertion of Infusion Device into Superior Vena Cava, Percutaneous Approach (ICD-10-PCS; 2023-07-22)
PROC: 06HY33Z Insertion of Infusion Device into Lower Vein, Percutaneous Approach (ICD-10-PCS; 2023-07-22)
PROC: 5A2204Z Restoration of Cardiac Rhythm, Single (ICD-10-PCS; 2023-07-22)
PROC: 3E033XZ Introduction of Vasopressor into Peripheral Vein, Percutaneous Approach (ICD-10-PCS; 2023-07-22)
PROC: 5A2204Z Restoration of Cardiac Rhythm, Single (ICD-10-PCS; 2023-08-01)
DX: I47.20 Ventricular tachycardia, unspecified (principal); I50.23 Acute on chronic systolic (congestive) heart failure; J96.01 Acute respiratory failure with hypoxia; R57.0 Cardiogenic shock; N17.0 Acute kidney failure with tubular necrosis; K72.00 Acute and subacute hepatic failure without coma; I42.0 Dilated cardiomyopathy; I13.0 Hypertensive heart and chronic kidney disease with heart failure and stage 1 through stage 4 chronic kidney disease, or unspecified chronic kidney disease; E87.20 Acidosis, unspecified; J98.11 Atelectasis; Z66 Do not resuscitate; E87.5 Hyperkalemia; I46.2 Cardiac arrest due to underlying cardiac condition; I48.92 Unspecified atrial flutter; N18.30 Chronic kidney disease, stage 3 unspecified; I27.20 Pulmonary hypertension, unspecified; E11.22 Type 2 diabetes mellitus with diabetic chronic kidney disease; I25.10 Atherosclerotic heart disease of native coronary artery without angina pectoris; E78.5 Hyperlipidemia, unspecified; R55 Syncope and collapse; E66.9 Obesity, unspecified; R47.81 Slurred speech; I44.0 Atrioventricular block, first degree; I48.4 Atypical atrial flutter; R94.31 Abnormal electrocardiogram [ECG] [EKG]; I50.82 Biventricular heart failure; D64.9 Anemia, unspecified; E83.51 Hypocalcemia; E87.6 Hypokalemia; E83.42 Hypomagnesemia; I47.10 Supraventricular tachycardia, unspecified; Z79.4 Long term (current) use of insulin; Z79.82 Long term (current) use of aspirin; Z95.2 Presence of prosthetic heart valve; Z89.431 Acquired absence of right foot; Z79.01 Long term (current) use of anticoagulants; Z68.39 Body mass index [BMI] 39.0-39.9, adult; Z28.21 Immunization not carried out because of patient refusal
CPT/HCPCS: 31500; 36556; 36600; 71045; 80047; 80048; 80053; 80069; 80074; 81001; 82330; 82803; 82947; 83605; 83735; 83880; 84100; 84132; 84443; 84450; 84460; 84484; 85014; 85018; 85025; 85049; 85520; 85610; 85730; 87040; 87077; 87086; 87186; 92526; 92610; 93005; 93010; 93970; 94002; 94003; 94644; 94664; 94760; 94762; 96374-59; 96375-59; 96376-59; 97110; 97116; 97162; 97166; 97530; 97535; 99291-25; 99292; A9270; C1751; C1752; C8929; C9113; J0171; J0282; J0360; J0612; J1160; J1250; J1644; J1650; J1815; J1940; J2704; J3010; J3475; J3480; J7030; J7040; J7050; J7060; J7120; Q9957